=== PATIENT | male | born 1950 | race Caucasian/White ===

== ENCOUNTER 2019-12-24 06:25 | Outpatient (REF) | payer MEDICARE, SELFPAY ==
[2019-12-24 06:55] LABS: MANUAL DIFF FLAG NO
[2019-12-24 07:01] LABS: Basophils Absolute Auto 0.1 X10*3/uL (0.0-0.2); Basophils Percent Auto 0.9 % (0-2); Eosinophils Absolute Auto 0.1 X10*3/uL (0.0-0.4); Hematocrit 43.8 % (42-52); Hemoglobin 15.4 g/dl (14.0-18.0); Imm Gran Abs Auto 0.01 X10*3/uL (0.00-0.03); Imm Gran Pct Auto 0.2 % (0.0-0.4); Lymphocytes Absolute Auto 1.3 X10*3/uL (1.2-4.9); Lymphocytes Percent Auto 23.6 % (20-40); Mean Corpuscular HGB Conc 35.2 g/dl (31.0-36.0); Mean Corpuscular Hemoglobin 31.6 pg (27.0-33.0); Mean Corpuscular Volume 89.9 fL (80-98); Mean Platelet Volume 10.1 fL (9.4-12.4); Monocytes Absolute Auto 0.6 X10*3/uL (0.1-1.2); Neutrophils Absolute Auto 3.6 X10*3/uL (2.0-8.3); Neutrophils Percent Auto 63.3 % (45-73); Platelet Count 173 X10*3/uL (160-400); Red Blood Count 4.87 X10*6/uL (4.60-5.80); Red Cell Distribution Width 11.9 % (11.0-16.0); White Blood Count 5.6 X10*3/uL (4.8-10.8)
[2019-12-24 07:23] LABS: Estimated Average Glucose 105 mg/dL; Hemoglobin A1c % 5.3 %
[2019-12-24 07:29] LABS: Alanine Aminotransferase 34 U/L (0-40); Albumin Level 4.3 g/dL (3.5-5.0); Alkaline Phosphatase 84 U/L (39-117); Anion Gap 14 (12-20); Aspartate Amino Transferase 31 U/L (5-37); Bilirubin Total 0.7 mg/dL (0.0-1.0); Blood Urea Nitrogen 25 mg/dL (9-16); Calcium 8.8 mg/dL (8.4-10.2); Carbon Dioxide 22 mmol/L (22-29); Chloride 108 mmol/L (96-108); Cholesterol 170 mg/dL; Estimated Glomerular Filt Rate > 60; Glucose Fasting 105 mg/dL (60-99); HDL Cholesterol 34 mg/dL; LDL Cholesterol Calculated 111 mg/dl; Sodium 140 mmol/L (135-145); Total Protein 6.6 g/dL (6.5-8.0); Triglycerides 126 mg/dL
[2019-12-24 07:52] LABS: TSH reflex Free T4 1.72 mIU/mL (0.32-4.0)
[2019-12-24 09:09] LABS: Glucose Urine UA NEG (NEG); Leukocyte Esterase Urine NEG (NEG); Nitrite Urine NEG (NEG); Specific Gravity - Urine 1.015 (1.005-1.025); Urine Blood NEG (NEG); Urine Ketones NEG (NEG); Urine Protein NEG (NEG-TRACE)
[2019-12-24 09:13] LABS: Appearance Urine CLEAR; Color Urine YELLOW; UACC CULT NO
[2019-12-24 09:15] LABS: RBC Urine 0 /HPF (0); WBC Urine 0 /HPF (0-4)
[2019-12-24 09:58] LABS: Creatinine Urine 73.39 mg/dL; Microalbumin Urine < 5.0 mg/L
== END 2019-12-24 06:26 | disposition home or self-care (01) ==
LOC: HO.LAB 06:25
PROVIDERS: Visit Provider Internal Medicine
DX: E11.9 Type 2 diabetes mellitus without complications (principal); E78.5 Hyperlipidemia, unspecified; K75.81 Nonalcoholic steatohepatitis (NASH); J44.9 Chronic obstructive pulmonary disease, unspecified; K21.9 Gastro-esophageal reflux disease without esophagitis; E66.3 Overweight
CPT/HCPCS: 36415; 80053; 80061; 81001; 82043; 83036; 84443; 85025

== ENCOUNTER 2020-04-07 06:04 | Outpatient (REF) | payer MEDICARE, SELFPAY ==
[2020-04-07 07:15] LABS: MANUAL DIFF FLAG NO
[2020-04-07 07:27] LABS: Glucose Urine UA NEG (NEG); Leukocyte Esterase Urine NEG (NEG); Nitrite Urine NEG (NEG); Specific Gravity - Urine 1.015 (1.005-1.025); Urine Blood NEG (NEG); Urine Ketones NEG (NEG); Urine Protein NEG (NEG-TRACE)
[2020-04-07 07:30] LABS: Appearance Urine CLEAR; Color Urine YELLOW
[2020-04-07 07:31] LABS: Basophils Absolute Auto 0.1 X10*3/uL (0.0-0.2); Basophils Percent Auto 1.1 % (0-2); Eosinophils Absolute Auto 0.2 X10*3/uL (0.0-0.4); Eosinophils Percent Auto 2.9 % (0-4); Hematocrit 43.2 % (42-52); Imm Gran Abs Auto 0.01 X10*3/uL (0.00-0.03); Imm Gran Pct Auto 0.2 % (0.0-0.4); Lymphocytes Absolute Auto 1.5 X10*3/uL (1.2-4.9); Lymphocytes Percent Auto 27.4 % (20-40); Mean Corpuscular HGB Conc 34.7 g/dl (31.0-36.0); Mean Corpuscular Hemoglobin 30.9 pg (27.0-33.0); Mean Corpuscular Volume 89.1 fL (80-98); Monocytes Absolute Auto 0.6 X10*3/uL (0.1-1.2); Neutrophils Absolute Auto 3.2 X10*3/uL (2.0-8.3); Neutrophils Percent Auto 57.4 % (45-73); Platelet Count 177 X10*3/uL (160-400); Red Blood Count 4.85 X10*6/uL (4.60-5.80); Red Cell Distribution Width 12.1 % (11.0-16.0); White Blood Count 5.6 X10*3/uL (4.8-10.8)
[2020-04-07 07:45] LABS: Creatinine Urine 61.08 mg/dL; Microalbumin Urine < 5.0 mg/L
[2020-04-07 07:46] LABS: Alanine Aminotransferase 35 U/L (0-40); Albumin Level 4.4 g/dL (3.5-5.0); Alkaline Phosphatase 96 U/L (39-117); Anion Gap 12 (12-20); Aspartate Amino Transferase 32 U/L (5-37); Bilirubin Total 0.9 mg/dL (0.0-1.0); Blood Urea Nitrogen 20 mg/dL (9-16); Calcium 9.3 mg/dL (8.4-10.2); Carbon Dioxide 23 mmol/L (22-29); Chloride 107 mmol/L (96-108); Cholesterol 178 mg/dL; Estimated Glomerular Filt Rate > 60; Glucose Fasting 105 mg/dL (60-99); HDL Cholesterol 41 mg/dL; LDL Cholesterol Calculated 116 mg/dl; Potassium 4.1 mmol/L (3.3-5.1); Sodium 138 mmol/L (135-145); Total Protein 6.7 g/dL (6.5-8.0); Triglycerides 106 mg/dL
[2020-04-07 08:09] LABS: TSH reflex Free T4 2.24 uIU/mL (0.32-4.0)
== END 2020-04-07 06:05 | disposition home or self-care (01) ==
LOC: HO.LAB 06:04
PROVIDERS: Visit Provider Internal Medicine
DX: E11.9 Type 2 diabetes mellitus without complications (principal); E78.00 Pure hypercholesterolemia, unspecified; J44.9 Chronic obstructive pulmonary disease, unspecified; K21.9 Gastro-esophageal reflux disease without esophagitis; E66.3 Overweight; K75.81 Nonalcoholic steatohepatitis (NASH)
CPT/HCPCS: 36415; 80053; 80061; 81003; 82043; 84443; 85025

== ENCOUNTER 2020-09-29 06:11 | Outpatient (REF) | payer MEDICARE, SELFPAY ==
[2020-09-29 07:28] LABS: MANUAL DIFF FLAG NO
[2020-09-29 07:32] LABS: Glucose Urine UA NEG (NEG); Leukocyte Esterase Urine NEG (NEG); Nitrite Urine NEG (NEG); Specific Gravity - Urine 1.015 (1.005-1.025); Urine Blood NEG (NEG); Urine Ketones NEG (NEG); Urine Protein NEG (NEG-TRACE)
[2020-09-29 07:33] LABS: Basophils Absolute Auto 0.1 X10*3/uL (0.0-0.2); Basophils Percent Auto 1.1 % (0-2); Eosinophils Absolute Auto 0.2 X10*3/uL (0.0-0.4); Eosinophils Percent Auto 3.1 % (0-4); Hematocrit 42.9 % (42-52); Hemoglobin 14.7 g/dl (14.0-18.0); Imm Gran Abs Auto 0.01 X10*3/uL (0.00-0.03); Imm Gran Pct Auto 0.2 % (0.0-0.4); Lymphocytes Absolute Auto 1.6 X10*3/uL (1.2-4.9); Lymphocytes Percent Auto 25.7 % (20-40); Mean Corpuscular HGB Conc 34.3 g/dl (31.0-36.0); Mean Corpuscular Hemoglobin 30.6 pg (27.0-33.0); Mean Corpuscular Volume 89.2 fL (80-98); Monocytes Absolute Auto 0.7 X10*3/uL (0.1-1.2); Monocytes Percent Auto 11.1 % (2-11); Neutrophils Absolute Auto 3.6 X10*3/uL (2.0-8.3); Neutrophils Percent Auto 58.8 % (45-73); Platelet Count 184 X10*3/uL (160-400); Red Blood Count 4.81 X10*6/uL (4.60-5.80); Red Cell Distribution Width 12.3 % (11.0-16.0); White Blood Count 6.1 X10*3/uL (4.8-10.8)
[2020-09-29 07:33] LABS: Appearance Urine HAZY; Color Urine YELLOW
[2020-09-29 07:43] LABS: Estimated Average Glucose 111 mg/dL; Hemoglobin A1c % 5.5 %
[2020-09-29 07:56] LABS: Alanine Aminotransferase 30 U/L (0-40); Albumin Level 4.4 g/dL (3.5-5.0); Alkaline Phosphatase 96 U/L (39-117); Anion Gap 13 (12-20); Aspartate Amino Transferase 29 U/L (5-37); Bilirubin Total 0.6 mg/dL (0.0-1.0); Blood Urea Nitrogen 26 mg/dL (9-16); Calcium 9.4 mg/dL (8.4-10.2); Carbon Dioxide 22 mmol/L (22-29); Chloride 110 mmol/L (96-108); Cholesterol 170 mg/dL; Estimated Glomerular Filt Rate > 60; Glucose Fasting 106 mg/dL (60-99); HDL Cholesterol 38 mg/dL; LDL Cholesterol Calculated 106 mg/dl; Potassium 4.2 mmol/L (3.3-5.1); Sodium 141 mmol/L (135-145); Total Protein 6.8 g/dL (6.5-8.0); Triglycerides 131 mg/dL
[2020-09-29 08:03] LABS: Creatinine Urine 73.08 mg/dL; Microalbumin Urine < 5.0 mg/L
[2020-09-29 08:20] LABS: TSH reflex Free T4 2.46 uIU/mL (0.32-4.0)
== END 2020-09-29 06:12 | disposition home or self-care (01) ==
LOC: HO.LAB 06:11
PROVIDERS: PCP Internal Medicine; Visit Provider Internal Medicine
DX: E78.00 Pure hypercholesterolemia, unspecified (principal); I10 Essential (primary) hypertension; E11.9 Type 2 diabetes mellitus without complications
CPT/HCPCS: 36415; 80053; 80061; 81003; 82043; 83036; 84443; 85025

== ENCOUNTER → 2020-11-13 10:41 | Outpatient (BNVA) | payer MEDICARE, SELFPAY | PROVIDERS: Absent Provider Nurse Practitioner Family; PCP Internal Medicine; Referring Provider Internal Medicine; Visit Provider Nurse Practitioner Family | DX: Z12.11 Encounter for screening for malignant neoplasm of colon (principal); K75.81 Nonalcoholic steatohepatitis (NASH); R19.5 Other fecal abnormalities | CPT/HCPCS: Q3014 ==

== ENCOUNTER 2021-01-09 07:53 | Day surgery (SDC) | payer MEDICARE, SELFPAY ==
[2020-12-06 12:16] VITALS: BMI 25.8
--- NOTE | 2021-01-08 12:43 | P.CONAN_ITS ---
Documented by User: Michelle Conti NP 01/08/21 12:44 HPI - Anesthesia Eval Consult details Narrative: 70yo M for Colonoscopy PMFSH Active Problems Active Problems: All Active Problems (Updated 12/06/20 @ 12:14 by Joanna Mei, TAWNY) Annual physical exam (Acute) Positive colorectal cancer screening using Cologuard test (Acute) Overweight (BMI 25.0-29.9) (Acute) GONZALEZ (nonalcoholic steatohepatitis) (Acute) GERD without esophagitis (Acute) COPD (chronic obstructive pulmonary disease) (Acute) Pure hypercholesterolemia (Acute) Type 2 diabetes mellitus without complication, without long-term current use of insulin (Acute) Past Medical History Medical History Arthritis COPD (chronic obstructive pulmonary disease) GERD without esophagitis GONZALEZ (nonalcoholic steatohepatitis) Overweight (BMI 25.0-29.9) Pure hypercholesterolemia Type 2 diabetes mellitus without complication, without long-term current use of insulin Family History Family History Father Lung cancer Smoker Mother Congestive heart failure Surgical History Surgical History No significant past surgical history Social History Social History Housing: House Are you a primary care management assistant to a significant other at home: No Do you presently have visiting nurse or other home services: No Alcohol intake: former Patient Tobacco Use Status: Former Tobacco user Quit Date: 1977 Tobacco use type: Cigarette Second Hand Smoke Exposure: Yes Use of substances other than those prescribed or required for medical reasons: No Have you been hit, kicked, punched, or otherwise hurt by someone within the past year? If so, by whom?: No Are you DNR?: No Advance Directives: No Advance Directives Information Provided: Yes Advance Directives on File: No Recently lost weight without trying: No Eating poorly because of decreased appetite: No Nutrition Risks: No Nutritional Risk Poor oral hygiene: No (has lower partial) service: No Current occupational status: retired Meds Allergies Allergy/AdvReac Type Severity Reaction Status Date / Time Penicillins [PCN] Allergy Intermediate RASH Verified 01/09/21 08:42 Sulfa (Sulfonamide Allergy Intermediate RASH Verified 01/09/21 08:42 Antibiotics) [SULFA (SULFONAMIDE ANTIBIOTICS)] ragweed and dust Allergy Intermediate Sneezing Uncoded 12/06/20 12:15 Home Medications Medication Instructions Recorded Confirmed Last Taken Type aspirin 81 mg chewable tablet 81 mg PO DAILY 01/06/20 12/06/20 01/06/21 06:00 History Exam Exam Date and Time: January 08, 2021 1243 Height,Weight and Vital Signs: Height 5 ft 10 in Weight 81.647 kg Pertinent Lab Results Pertinent Lab Results: Laboratory Tests 09/29/20 09/29/20 06:20 06:20 WBC 6.1 Hgb 14.7 Hct 42.9 Plt Count 184 Sodium 141 Potassium 4.2 Chloride 110 H Carbon Dioxide 22 BUN 26 H Creatinine 1.11 Assessment and Plan Assessment Anesthesia Assessment: Chart Reviewed Documented by User: Christopher Modi MD 01/09/21 09:21 [facility] Past Medical History Medical History Arthritis COPD (chronic obstructive pulmonary disease) GERD without esophagitis GONZALEZ (nonalcoholic steatohepatitis) Overweight (BMI 25.0-29.9) Pure hypercholesterolemia Type 2 diabetes mellitus without complication, without long-term current use of insulin Family History Family History Father Lung cancer Smoker Mother Congestive heart failure Family history of problems with anesthesia: No Surgical History Surgical History No significant past surgical history History of Problems with Anesthesia: No Social History Social History Housing: House Are you a primary care management assistant to a significant other at home: No Do you presently have visiting nurse or other home services: No Alcohol intake: former Patient Tobacco Use Status: Former Tobacco user Quit Date: 1977 Tobacco use type: Cigarette Second Hand Smoke Exposure: Yes Use of substances other than those prescribed or required for medical reasons: No Have you been hit, kicked, punched, or otherwise hurt by someone within the past year? If so, by whom?: No Are you DNR?: No Advance Directives: No Advance Directives Information Provided: Yes Advance Directives on File: No Recently lost weight without trying: No Eating poorly because of decreased appetite: No Nutrition Risks: No Nutritional Risk Poor oral hygiene: No (has lower partial) service: No Current occupational status: retired Meds Allergies Allergy/AdvReac Type Severity Reaction Status Date / Time Penicillins [PCN] Allergy Intermediate RASH Verified 01/09/21 08:42 Sulfa (Sulfonamide Allergy Intermediate RASH Verified 01/09/21 08:42 Antibiotics) [SULFA (SULFONAMIDE ANTIBIOTICS)] ragweed and dust Allergy Intermediate Sneezing Uncoded 12/06/20 12:15 Home Medications Medication Instructions Recorded Confirmed Last Taken Type aspirin 81 mg chewable tablet 81 mg PO DAILY 01/06/20 12/06/20 01/06/21 06:00 History Exam Airway Mallampati Class: II TM Dist: >3cm Neck ROM: Full Partial: Upper and Lower Loose/Missing/Broken Teeth: Yes (multiple broken and missing teeth; poor dentition) Assessment and Plan Assessment Anesthesia Assessment: Anesthesia Plan Discussed Final Anesthetic Review Family History of Problems with Anesthesia: No History of Problems with Anesthesia: No NPO: Yes ASA Class: II Final Preanesthetic Review: No Changes in Pt Med Stat, Meds/Allgs Chart Reviewed, Consent Obtained/Reviewed and Anes Risks/Benef Reviewed Patient Risk: Low Procedure Risk: Low Anesthetic Plan Anesthetic Plan: MAC: Disposition: Standard PACU
[2021-01-09 08:33] LABS: Glucose, Whole Blood 104 mg/dL (60-115)
[2021-01-09 08:43] VITALS: BP 121/71; PULSE 62; RESP 20; TEMP 36.5; O2SAT 98
[2021-01-09] MEDS: Lactated Ringers 1,000 ML 100 ML IVCONT (08:55)
--- NOTE | 2021-01-09 09:44 | MHC.SHP ---
Pre-Procedural Eval Section A Date of Service: 01/09/21 The patient is an INPATIENT: No The History & Physical has been completed within 30 days and I have reviewed it.: No Section B Chief Complaint: Screening Details of Present Illness: Colon cancer screening Relevant Family History (Specify if Yes): No Relevant Social History: Tobacco Use (Former smoker) Present Medications: see Short Stay Collaborative assessment Medical History: Significant History (COPD (chronic obstructive pulmonary disease) GERD without esophagitis GONZALEZ (nonalcoholic steatohepatitis) Overweight (BMI 25.0-29.9) Pure hypercholesterolemia Type 2 diabetes mellitus without complication, without long-term current use of insulin) History of Previous Operations: No relevant previous surgery Allergies: Allergies Allergy/AdvReac Type Severity Reaction Status Date / Time Penicillins [PCN] Allergy Intermediate RASH Verified 01/09/21 08:42 Sulfa (Sulfonamide Allergy Intermediate RASH Verified 01/09/21 08:42 Antibiotics) [SULFA (SULFONAMIDE ANTIBIOTICS)] ragweed and dust Allergy Intermediate Sneezing Uncoded 12/06/20 12:15 Review of Systems Sugical H&P ROS: Negative: Constitution, Cardiovascular, Respiratory and Gastrointestinal Exam Surgical H&P Exam: Normal: Heart, Normal: Lungs, Normal: Extremities and Normal: Abdomen Plan Diagnosis/Plan: Unchanged I have reviewed the history and physical and performed a pertinent physical examination on my patient. No changes have occurred unless specified.
--- NOTE | 2021-01-09 09:53 | P.OP_ITS ---
Operative Note Operative Note Date of Service: 01/09/21 Narrative: Pre-op diagnosis:?Colon cancer screening, positive cologuard test Post-op diagnosis:?other (Diverticulosis, hemorrhoids) Procedure:? COLONOSCOPY TILL CECUM Consent: Indications for the procedure and potential complications of bleeding, perforation, reaction to medications and missed diagnosis were discussed with the patient and informed consent was obtained. Instrument: Olympus PCF H 190 L variable stiffness pediatric colonoscope Monitoring: Vital signs and clinical assessment, intermittent blood pressure monitoring, continuous EKG monitoring, Pulse oximetry and Carbon Dioxide monitoring were done throughout the procedure. Colon withdrawl time was 24 minutes. Procedure: The patient was placed in the left lateral decubitis position and pre-procedure medications were administered. After a digital rectal examination of the ano-rectum, the video colonoscope was inserted into the rectum and advanced through the colon to the cecum. The colonoscope was slowly withdrawn in a retrograde panoramic fashion and the colon mucosa was carefully examined including a retroflexed view of the rectum. Findings and interventions are described below. Procedure Difficulty: Without difficulty Findings: Terminal Ileum: Not evaluated Cecum:? Normal Ascending Colon:? Moderate diverticulosis Transverse Colon:? Moderate diverticulosis Descending Colon:? Moderate diverticulosis Sigmoid Colon:? Moderate diverticulosis Rectum:? Normal Ano-rectum:? Moderate internal hemorrhoids Colon preparation:? Good after copious irrigation and fair in the right colon due to adherent stools Impression and Post Procedure Diagnosis: Colonoscopy Findings: No polyps were detected Moderate diverticulosis seen in the entire colon Moderate hemorrhoids on retroflexed exam. Plan: Repeat Colonoscopy in 5 years due to fair prep in the right colon. Above findings were reviewed with the patient and diverticulosis handout was? given in the discharge area Surgeon:?Jenny Rankin MD Anesthesia:?MAC (Beverly Prakash CRNA) Was an System Support Specialist used for this Procedure?:?Yes System Support Specialist:?Mary Mason Estimated blood loss (mL):?0 Pathology:?none sent Condition:?stable Disposition:?PACU
[2021-01-09 10:35] VITALS: BP 93/45; PULSE 75; RESP 16; TEMP 36.3; O2SAT 97
[2021-01-09 10:49] VITALS: BP 111/58; PULSE 66; RESP 16; TEMP 36.3; O2SAT 98
== END 2021-01-09 11:26 | disposition home or self-care (01) ==
PROVIDERS: PCP Internal Medicine; Visit Provider Internal Medicine Gastroenterology
PROC: 0DJD8ZZ Inspection of Lower Intestinal Tract, Via Natural or Artificial Opening Endoscopic (ICD-10-PCS; CPT 45378; principal; 2021-01-09 09:20)
DX: Z12.11 Encounter for screening for malignant neoplasm of colon (principal); R19.5 Other fecal abnormalities; K57.30 Diverticulosis of large intestine without perforation or abscess without bleeding; K64.8 Other hemorrhoids; K21.9 Gastro-esophageal reflux disease without esophagitis; K75.81 Nonalcoholic steatohepatitis (NASH); E78.00 Pure hypercholesterolemia, unspecified; J44.9 Chronic obstructive pulmonary disease, unspecified; E11.9 Type 2 diabetes mellitus without complications; E66.3 Overweight; Z68.25 Body mass index [BMI] 25.0-25.9, adult; Z79.82 Long term (current) use of aspirin; Z88.0 Allergy status to penicillin; Z88.2 Allergy status to sulfonamides; Z87.891 Personal history of nicotine dependence
CPT/HCPCS: G0121; 82947

== ENCOUNTER 2021-02-05 06:06 | Outpatient (REF) | payer MEDICARE, SELFPAY ==
[2021-02-05 06:18] LABS: MANUAL DIFF FLAG NO
[2021-02-05 07:50] LABS: Estimated Average Glucose 111 mg/dL; Hemoglobin A1c % 5.5 %
[2021-02-05 08:11] LABS: Alanine Aminotransferase 35 U/L (0-40); Albumin Level 4.3 g/dL (3.5-5.0); Alkaline Phosphatase 90 U/L (39-117); Anion Gap 12 (12-20); Aspartate Amino Transferase 29 U/L (5-37); Bilirubin Total 0.6 mg/dL (0.0-1.0); Blood Urea Nitrogen 20 mg/dL (9-16); Calcium 9.4 mg/dL (8.4-10.2); Carbon Dioxide 26 mmol/L (22-29); Chloride 109 mmol/L (96-108); Cholesterol 181 mg/dL; Estimated Glomerular Filt Rate > 60; Glucose Fasting 107 mg/dL (60-99); HDL Cholesterol 38 mg/dL; LDL Cholesterol Calculated 125 mg/dl; Potassium 4.5 mmol/L (3.3-5.1); Sodium 142 mmol/L (135-145); Total Protein 6.8 g/dL (6.5-8.0); Triglycerides 93 mg/dL
[2021-02-05 08:21] LABS: Basophils Absolute Auto 0.1 X10*3/uL (0.0-0.2); Basophils Percent Auto 0.8 % (0-2); Eosinophils Absolute Auto 0.1 X10*3/uL (0.0-0.4); Eosinophils Percent Auto 2.1 % (0-4); Hematocrit 51.1 % (42.0-52.0); Hemoglobin 17.4 g/dl (14.0-18.0); Imm Gran Abs Auto 0.03 X10*3/uL (0.00-0.03); Imm Gran Pct Auto 0.5 % (0.0-0.4); Lymphocytes Absolute Auto 1.4 X10*3/uL (1.2-4.9); Lymphocytes Percent Auto 22.7 % (20-40); Mean Corpuscular HGB Conc 34.1 g/dl (31.0-36.0); Mean Corpuscular Hemoglobin 30.7 pg (27.0-33.0); Mean Corpuscular Volume 90.3 fL (80.0-98.0); Mean Platelet Volume 10.4 fL (9.4-12.4); Monocytes Absolute Auto 0.7 X10*3/uL (0.1-1.2); Monocytes Percent Auto 11.5 % (2-11); Neutrophils Absolute Auto 3.8 x10*3/uL (2.0-8.3); Neutrophils Percent Auto 62.4 % (45-73); Platelet Count 158 X10*3/uL (160-400); Red Blood Count 5.66 X10*6/uL (4.60-5.80); Red Cell Distribution Width 12.1 % (11.0-16.0); White Blood Count 6.1 X10*3/uL (4.8-10.8)
[2021-02-05 08:30] LABS: Prostate Specific Antigen 3.86 ng/mL (<0.05-4.0); Vitamin D 25-OH Total 44.3 ng/mL (>30)
[2021-02-05 08:39] LABS: Appearance Urine CLEAR; Color Urine YELLOW; Glucose Urine UA NEG (NEG); Leukocyte Esterase Urine NEG (NEG); Nitrite Urine NEG (NEG); Urine Blood NEG (NEG); Urine Ketones NEG (NEG); Urine Protein NEG (NEG-TRACE)
== END 2021-02-05 06:07 | disposition home or self-care (01) ==
LOC: HO.LAB 06:06
PROVIDERS: PCP Internal Medicine; Visit Provider Internal Medicine
DX: Z00.00 Encounter for general adult medical examination without abnormal findings (principal); I10 Essential (primary) hypertension; E55.9 Vitamin D deficiency, unspecified; E78.00 Pure hypercholesterolemia, unspecified; N40.0 Benign prostatic hyperplasia without lower urinary tract symptoms; E11.9 Type 2 diabetes mellitus without complications; Z12.5 Encounter for screening for malignant neoplasm of prostate
CPT/HCPCS: 36415; 80053; 80061; 81003; 82306; 83036; 84153; 84443; 85025

== ENCOUNTER 2021-06-06 06:08 | Outpatient (REF) | payer MEDICARE, SELFPAY ==
[2021-06-06 06:24] LABS: MANUAL DIFF FLAG NO
[2021-06-06 07:38] LABS: Basophils Absolute Auto 0.1 X10*3/uL (0.0-0.2); Basophils Percent Auto 1.2 % (0-2); Eosinophils Absolute Auto 0.1 X10*3/uL (0.0-0.4); Eosinophils Percent Auto 2.1 % (0-4); Hematocrit 44.9 % (42.0-52.0); Hemoglobin 15.4 g/dl (14.0-18.0); Imm Gran Abs Auto 0.01 X10*3/uL (0.00-0.03); Imm Gran Pct Auto 0.2 % (0.0-0.4); Lymphocytes Absolute Auto 1.4 X10*3/uL (1.2-4.9); Lymphocytes Percent Auto 22.6 % (20-40); Mean Corpuscular HGB Conc 34.3 g/dl (31.0-36.0); Mean Corpuscular Hemoglobin 30.8 pg (27.0-33.0); Mean Corpuscular Volume 89.8 fL (80.0-98.0); Mean Platelet Volume 10.3 fL (9.4-12.4); Monocytes Absolute Auto 0.6 X10*3/uL (0.1-1.2); Monocytes Percent Auto 10.6 % (2-11); Neutrophils Absolute Auto 3.8 x10*3/uL (2.0-8.3); Neutrophils Percent Auto 63.3 % (45-73); Platelet Count 191 X10*3/uL (160-400); Red Cell Distribution Width 12.2 % (11.0-16.0); White Blood Count 6.1 X10*3/uL (4.8-10.8)
[2021-06-06 07:59] LABS: Estimated Average Glucose 108 mg/dL; Hemoglobin A1c % 5.4 %
[2021-06-06 08:11] LABS: Alanine Aminotransferase 30 U/L (0-40); Albumin Level 4.4 g/dL (3.5-5.0); Alkaline Phosphatase 92 U/L (39-117); Anion Gap 13 (12-20); Aspartate Amino Transferase 30 U/L (5-37); Bilirubin Total 0.6 mg/dL (0.0-1.0); Blood Urea Nitrogen 25 mg/dL (9-16); Calcium 9.7 mg/dL (8.4-10.2); Carbon Dioxide 24 mmol/L (22-29); Chloride 109 mmol/L (96-108); Cholesterol 185 mg/dL; Estimated Glomerular Filt Rate > 60; Glucose Fasting 108 mg/dL (60-99); HDL Cholesterol 40 mg/dL; LDL Cholesterol Calculated 127 mg/dl; Potassium 4.8 mmol/L (3.3-5.1); Sodium 141 mmol/L (135-145); Total Protein 6.8 g/dL (6.5-8.0); Triglycerides 92 mg/dL
[2021-06-06 08:21] LABS: TSH reflex Free T4 2.77 uIU/mL (0.32-4.0); Vitamin D 25-OH Total 40.7 ng/mL (>30)
== END 2021-06-06 06:09 | disposition home or self-care (01) ==
LOC: HO.LAB 06:08
PROVIDERS: PCP Internal Medicine; Visit Provider Internal Medicine
DX: E11.9 Type 2 diabetes mellitus without complications (principal); E55.9 Vitamin D deficiency, unspecified; E78.00 Pure hypercholesterolemia, unspecified; K21.9 Gastro-esophageal reflux disease without esophagitis
CPT/HCPCS: 36415; 80053; 80061; 82306; 83036; 84443; 85025

== ENCOUNTER 2021-06-07 08:56 | Outpatient (REF) | payer MEDICARE, SELFPAY ==
[2021-06-07 10:06] LABS: Appearance Urine CLEAR; Color Urine STRAW; Glucose Urine UA NEG (NEG); Leukocyte Esterase Urine NEG (NEG); Nitrite Urine NEG (NEG); Urine Blood NEG (NEG); Urine Ketones NEG (NEG); Urine Protein NEG (NEG-TRACE)
[2021-06-07 10:39] LABS: Creatinine Urine 35.82 mg/dL; Microalbumin Urine < 5.0 mg/L
== END 2021-06-07 08:57 | disposition home or self-care (01) ==
LOC: HO.LAB 08:56
PROVIDERS: PCP Internal Medicine; Visit Provider Internal Medicine
DX: E11.9 Type 2 diabetes mellitus without complications (principal)
CPT/HCPCS: 81003; 82043

== ENCOUNTER 2021-06-13 11:37 | Outpatient (REF) | payer MEDICARE, SELFPAY ==
--- NOTE | ~2021-06-13 | XR_ITS ---
EXAMINATION: XR HAND, RIGHT XR HAND, LEFT CLINICAL INFORMATION: Bilateral pain in hands. COMPARISON: None TECHNIQUE: Each hand is imaged in 3 views. There are total of 6 views. FINDINGS: Right: No fracture, dislocation, destructive process. Bony mineralization within normal. Ulnar variance is neutral. Incidental bone island in mid carpal navicular. There is a group of 3 smooth course round calcifications superficial volar side distal forearm with nodular contour to skin surface. There are osteoarthritic changes involving the first carpometacarpal joint with fine subchondral cysts and spurring and sclerosis. Remainder of the carpus unremarkable. No mineralization triangular fibrocartilage. The MCP and PIP joints are normal. DIP joints show osteoarthritic changes at the fifth finger with probable fine central erosions suggesting erosive osteoarthritis. Psoriatic arthritis less likely. Clinically correlate. Mild narrowing third and fourth finger DIP. Left: No fracture, dislocation, destructive process. Bony mineralization within normal. Ulnar variance is neutral. Osteoarthritic changes first carpometacarpal joint, lesser severity than that on the right. There is also mild narrowing of the triscaphe joint. Remainder carpus unremarkable. No mineralization triangular fibrocartilage. The MCP and PIP joints are unremarkable. Incidental bone island next first metacarpal. DIP joints show osteoarthritic changes at the fifth finger with probable erosions suggesting erosive osteoarthritis. Mild narrowing third and fourth finger DIP. XR/XR hand RT min 3V IMPRESSION: Right: -Osteoarthritis first carpometacarpal joint with probable subchondral geodes rather than erosive change. -Narrowing DIP joints, greatest fifth finger with central erosions suggesting erosive osteoarthritis. Psoriatic arthritis may have similar appearance. Clinically correlate. -Nonspecific superficial nodule distal volar forearm with for small benign appearing round calcifications. Left: -Osteoarthritis first carpometacarpal joint, lesser severity than right. -Narrowing triscaphe joint. -Degenerative changes DIP joints greatest fifth finger with probable suggesting erosive osteoarthritis. Psoriatic arthritis may have similar appearance. Clinically correlate.
== END 2021-06-13 11:38 | disposition home or self-care (01) ==
LOC: HO.XRAY 11:37
PROVIDERS: PCP Internal Medicine; Visit Provider Internal Medicine
DX: M79.641 Pain in right hand (principal); M79.642 Pain in left hand
CPT/HCPCS: 73130

== ENCOUNTER 2021-10-03 06:06 | Outpatient (REF) | payer OTHER, SELFPAY ==
[2021-10-03 06:13] LABS: MANUAL DIFF FLAG NO
[2021-10-03 07:18] LABS: Basophils Absolute Auto 0.1 X10*3/uL (0.0-0.2); Basophils Percent Auto 1.1 % (0-2); Eosinophils Absolute Auto 0.2 X10*3/uL (0.0-0.4); Eosinophils Percent Auto 2.4 % (0-4); Hematocrit 43.9 % (42.0-52.0); Hemoglobin 15.3 g/dl (14.0-18.0); Imm Gran Abs Auto 0.03 X10*3/uL (0.00-0.03); Imm Gran Pct Auto 0.5 % (0.0-0.4); Lymphocytes Absolute Auto 1.5 X10*3/uL (1.2-4.9); Lymphocytes Percent Auto 23.8 % (20-40); Mean Corpuscular HGB Conc 34.9 g/dl (31.0-36.0); Mean Corpuscular Hemoglobin 31.2 pg (27.0-33.0); Mean Corpuscular Volume 89.6 fL (80.0-98.0); Mean Platelet Volume 10.3 fL (9.4-12.4); Monocytes Absolute Auto 0.7 X10*3/uL (0.1-1.2); Monocytes Percent Auto 11.4 % (2-11); Neutrophils Absolute Auto 3.9 x10*3/uL (2.0-8.3); Neutrophils Percent Auto 60.8 % (45-73); Platelet Count 181 X10*3/uL (160-400); Red Cell Distribution Width 12.2 % (11.0-16.0); White Blood Count 6.4 X10*3/uL (4.8-10.8)
[2021-10-03 07:30] LABS: Estimated Average Glucose 105 mg/dL; Hemoglobin A1c % 5.3 %
[2021-10-03 07:41] LABS: Alanine Aminotransferase 23 U/L (0-40); Albumin Level 4.5 g/dL (3.5-5.0); Alkaline Phosphatase 89 U/L (39-117); Anion Gap 16 (12-20); Aspartate Amino Transferase 24 U/L (5-37); Bilirubin Total 0.3 mg/dL (0.0-1.0); Blood Urea Nitrogen 25 mg/dL (9-16); C Reactive Protein 0.07 mg/dL (< or = 0.50); Calcium 9.3 mg/dL (8.4-10.2); Carbon Dioxide 24 mmol/L (22-29); Chloride 107 mmol/L (96-108); Cholesterol 200 mg/dL; Estimated Glomerular Filt Rate > 60; Glucose Fasting 101 mg/dL (60-99); HDL Cholesterol 39 mg/dL; LDL Cholesterol Calculated 145 mg/dl; Potassium 4.3 mmol/L (3.3-5.1); Sodium 143 mmol/L (135-145); Total Protein 6.9 g/dL (6.5-8.0); Triglycerides 82 mg/dL
[2021-10-03 08:00] LABS: Erythrocyte Sedimentation Rate 5 MM/HR (0-15)
[2021-10-03 08:05] LABS: TSH reflex Free T4 2.48 uIU/mL (0.32-4.0); Vitamin D 25-OH Total 39.5 ng/mL (>30)
[2021-10-03 08:28] LABS: Creatinine Urine 22.22 mg/dL; Microalbumin Urine < 5.0 mg/L
[2021-10-03 09:01] LABS: Appearance Urine Clear; Color Urine Yellow; Glucose Urine UA Negative (Negative); Leukocyte Esterase Urine Negative (Negative); Nitrite Urine Negative (Negative); PH 6.5 (5.0-8.0); Specific Gravity - Urine <= 1.005 (1.005-1.025); Urine Blood Negative (Negative); Urine Ketones Negative (Negative); Urine Protein Negative (Neg-Trace)
== END 2021-10-03 06:07 | disposition home or self-care (01) ==
LOC: HO.LAB 06:06
PROVIDERS: PCP Internal Medicine; Visit Provider Internal Medicine
DX: E11.9 Type 2 diabetes mellitus without complications (principal); E55.9 Vitamin D deficiency, unspecified; M25.50 Pain in unspecified joint; M79.7 Fibromyalgia; M10.9 Gout, unspecified; I10 Essential (primary) hypertension; E78.00 Pure hypercholesterolemia, unspecified
CPT/HCPCS: 36415; 80053; 80061; 81003; 82043; 82306; 83036; 84443; 84550; 85025; 85652; 86140

== ENCOUNTER 2022-02-05 06:16 | Outpatient (REF) | payer OTHER, SELFPAY ==
[2022-02-05 06:23] LABS: MANUAL DIFF FLAG NO
[2022-02-05 07:28] LABS: Basophils Absolute Auto 0.1 X10*3/uL (0.0-0.2); Basophils Percent Auto 0.9 % (0-2); Eosinophils Absolute Auto 0.2 X10*3/uL (0.0-0.4); Eosinophils Percent Auto 2.2 % (0-4); Hematocrit 46.3 % (42.0-52.0); Hemoglobin 16.1 g/dl (14.0-18.0); Imm Gran Abs Auto 0.02 X10*3/uL (0.00-0.03); Imm Gran Pct Auto 0.3 % (0.0-0.4); Lymphocytes Absolute Auto 1.5 X10*3/uL (1.2-4.9); Lymphocytes Percent Auto 22.9 % (20-40); Mean Corpuscular HGB Conc 34.8 g/dl (31.0-36.0); Mean Corpuscular Hemoglobin 31.3 pg (27.0-33.0); Mean Corpuscular Volume 90.1 fL (80.0-98.0); Mean Platelet Volume 9.9 fL (9.4-12.4); Monocytes Absolute Auto 0.7 X10*3/uL (0.1-1.2); Monocytes Percent Auto 10.5 % (2-11); Neutrophils Absolute Auto 4.2 x10*3/uL (2.0-8.3); Neutrophils Percent Auto 63.2 % (45-73); Platelet Count 186 X10*3/uL (160-400); Red Blood Count 5.14 X10*6/uL (4.60-5.80); Red Cell Distribution Width 11.9 % (11.0-16.0); White Blood Count 6.7 X10*3/uL (4.8-10.8)
[2022-02-05 07:41] LABS: Appearance Urine Clear; Color Urine Yellow; Estimated Average Glucose 108 mg/dL; Glucose Urine UA Negative (Negative); Hemoglobin A1c % 5.4 %; Leukocyte Esterase Urine Negative (Negative); Nitrite Urine Negative (Negative); PH 7.5 (5.0-9.0); Specific Gravity - Urine <= 1.005 (1.005-1.025); Urine Blood Negative (Negative); Urine Ketones Negative (Negative); Urine Protein Negative (Neg-Trace)
[2022-02-05 07:51] LABS: Creatinine Urine 15.61 mg/dL; Microalbumin Urine < 5.0 mg/L
[2022-02-05 07:56] LABS: Alanine Aminotransferase 39 U/L (0-40); Albumin Level 4.6 g/dL (3.5-5.0); Alkaline Phosphatase 89 U/L (39-117); Anion Gap 12 (12-20); Aspartate Amino Transferase 32 U/L (5-37); Blood Urea Nitrogen 20 mg/dL (9-16); Calcium 9.9 mg/dL (8.4-10.2); Carbon Dioxide 26 mmol/L (22-29); Chloride 108 mmol/L (96-108); Cholesterol 185 mg/dL; Estimated Glomerular Filt Rate > 60; Glucose Fasting 99 mg/dL (60-99); HDL Cholesterol 40 mg/dL; LDL Cholesterol Calculated 119 mg/dl; Potassium 4.7 mmol/L (3.3-5.1); Sodium 141 mmol/L (135-145); Triglycerides 131 mg/dL
[2022-02-05 08:15] LABS: Vitamin D 25-OH Total 38.8 ng/mL (>30)
[2022-02-05 11:22] LABS: Bilirubin Total 0.7 mg/dL (0.0-1.0)
== END 2022-02-05 06:17 | disposition home or self-care (01) ==
LOC: HO.LAB 06:16
PROVIDERS: PCP Internal Medicine; Visit Provider Internal Medicine
DX: E78.00 Pure hypercholesterolemia, unspecified (principal); E11.9 Type 2 diabetes mellitus without complications; E55.9 Vitamin D deficiency, unspecified; I10 Essential (primary) hypertension
CPT/HCPCS: 36415; 80053; 80061; 81003; 82043; 82306; 83036; 84443; 85025

== ENCOUNTER 2022-06-11 06:13 | Outpatient (REF) | payer OTHER, SELFPAY ==
[2022-06-11 06:31] LABS: MANUAL DIFF FLAG NO
[2022-06-11 07:39] LABS: Basophils Absolute Auto 0.1 X10*3/uL (0.0-0.2); Basophils Percent Auto 1.2 % (0-2); Eosinophils Absolute Auto 0.1 X10*3/uL (0.0-0.4); Eosinophils Percent Auto 2.4 % (0-4); Hematocrit 45.5 % (42.0-52.0); Hemoglobin 15.3 g/dl (14.0-18.0); Imm Gran Abs Auto 0.02 X10*3/uL (0.00-0.03); Imm Gran Pct Auto 0.3 % (0.0-0.4); Lymphocytes Absolute Auto 1.2 X10*3/uL (1.2-4.9); Lymphocytes Percent Auto 19.8 % (20-40); Mean Corpuscular HGB Conc 33.6 g/dl (31.0-36.0); Mean Corpuscular Hemoglobin 30.5 pg (27.0-33.0); Mean Corpuscular Volume 90.8 fL (80.0-98.0); Mean Platelet Volume 10.1 fL (9.4-12.4); Monocytes Absolute Auto 0.6 X10*3/uL (0.1-1.2); Monocytes Percent Auto 10.6 % (2-11); Neutrophils Absolute Auto 3.9 x10*3/uL (2.0-8.3); Neutrophils Percent Auto 65.7 % (45-73); Platelet Count 181 X10*3/uL (160-400); Red Blood Count 5.01 X10*6/uL (4.60-5.80); Red Cell Distribution Width 12.1 % (11.0-16.0); White Blood Count 5.9 X10*3/uL (4.8-10.8)
[2022-06-11 07:50] LABS: Estimated Average Glucose 108 mg/dL; Hemoglobin A1c % 5.4 %
[2022-06-11 08:14] LABS: Alanine Aminotransferase 36 U/L (0-40); Albumin Level 4.4 g/dL (3.5-5.0); Alkaline Phosphatase 96 U/L (39-117); Anion Gap 13 (12-20); Aspartate Amino Transferase 31 U/L (5-37); Bilirubin Total 0.6 mg/dL (0.0-1.0); Blood Urea Nitrogen 25 mg/dL (9-16); Calcium 9.5 mg/dL (8.4-10.2); Carbon Dioxide 24 mmol/L (22-29); Chloride 109 mmol/L (96-108); Cholesterol 157 mg/dL; Estimated Glomerular Filt Rate > 60; Glucose Fasting 106 mg/dL (60-99); HDL Cholesterol 39 mg/dL; LDL Cholesterol Calculated 102 mg/dl; Potassium 4.4 mmol/L (3.3-5.1); Sodium 142 mmol/L (135-145); Total Protein 6.6 g/dL (6.5-8.0); Triglycerides 82 mg/dL
[2022-06-11 08:19] LABS: TSH reflex Free T4 2.55 uIU/mL (0.32-4.0)
[2022-06-11 08:35] LABS: Appearance Urine Clear; Color Urine Yellow; Glucose Urine UA Negative (Negative); Leukocyte Esterase Urine Negative (Negative); Nitrite Urine Negative (Negative); Specific Gravity - Urine <= 1.005 (1.005-1.025); Urine Blood Negative (Negative); Urine Ketones Negative (Negative); Urine Protein Negative (Neg-Trace)
[2022-06-11 09:28] LABS: Microalbumin Urine < 5.0 mg/L
== END 2022-06-11 06:14 | disposition home or self-care (01) ==
LOC: HO.LAB 06:13
PROVIDERS: PCP Internal Medicine; Visit Provider Internal Medicine
DX: E55.9 Vitamin D deficiency, unspecified (principal); R30.0 Dysuria; E78.00 Pure hypercholesterolemia, unspecified; E11.9 Type 2 diabetes mellitus without complications; I10 Essential (primary) hypertension
CPT/HCPCS: 36415; 80053; 80061; 81003; 82043; 82306; 83036; 84443; 85025

== ENCOUNTER 2022-10-11 06:12 | Outpatient (REF) | payer OTHER, SELFPAY ==
[2022-10-11 06:23] LABS: MANUAL DIFF FLAG NO
[2022-10-11 08:19] LABS: Basophils Absolute Auto 0.1 X10*3/uL (0.0-0.2); Basophils Percent Auto 1.2 % (0-2); Eosinophils Absolute Auto 0.2 X10*3/uL (0.0-0.4); Eosinophils Percent Auto 3.1 % (0-4); Hematocrit 42.7 % (42.0-52.0); Hemoglobin 14.4 g/dl (14.0-18.0); Imm Gran Abs Auto 0.01 X10*3/uL (0.00-0.03); Imm Gran Pct Auto 0.2 % (0.0-0.4); Lymphocytes Absolute Auto 1.2 X10*3/uL (1.2-4.9); Lymphocytes Percent Auto 21.3 % (20-40); Mean Corpuscular HGB Conc 33.7 g/dl (31.0-36.0); Mean Corpuscular Volume 91.8 fL (80.0-98.0); Mean Platelet Volume 10.4 fL (9.4-12.4); Monocytes Absolute Auto 0.7 X10*3/uL (0.1-1.2); Monocytes Percent Auto 11.4 % (2-11); Neutrophils Absolute Auto 3.7 x10*3/uL (2.0-8.3); Neutrophils Percent Auto 62.8 % (45-73); Platelet Count 170 X10*3/uL (160-400); Red Blood Count 4.65 X10*6/uL (4.60-5.80); Red Cell Distribution Width 12.3 % (11.0-16.0); White Blood Count 5.8 X10*3/uL (4.8-10.8)
[2022-10-11 08:44] LABS: Estimated Average Glucose 103 mg/dL; Hemoglobin A1c % 5.2 % (<6.0)
[2022-10-11 09:16] LABS: Alanine Aminotransferase 34 U/L (0-40); Albumin Level 4.2 g/dL (3.5-5.0); Alkaline Phosphatase 82 U/L (39-117); Anion Gap 14 (12-20); Aspartate Amino Transferase 30 U/L (5-37); Bilirubin Total 0.6 mg/dL (0.0-1.0); Blood Urea Nitrogen 24 mg/dL (9-16); Calcium 9.5 mg/dL (8.4-10.2); Carbon Dioxide 22 mmol/L (22-29); Chloride 109 mmol/L (96-108); Cholesterol 143 mg/dL (<200); Estimated Glomerular Filt Rate > 60; Glucose Fasting 100 mg/dL (60-99); HDL Cholesterol 43 mg/dL (>40); LDL Cholesterol Calculated 85 mg/dL (<100); Potassium 4.2 mmol/L (3.3-5.1); Sodium 141 mmol/L (135-145); Total Protein 6.7 g/dL (6.5-8.0); Triglycerides 75 mg/dL (<150)
[2022-10-11 09:24] LABS: TSH reflex Free T4 3.01 uIU/mL (0.32-4.0); Vitamin D 25-OH Total 55.7 ng/mL (>30)
[2022-10-11 09:45] LABS: Folate 13.3 ng/mL (> or = 4.0); Vitamin B12 541 pg/mL (200-900)
[2022-10-11 10:22] LABS: Appearance Urine Clear; Color Urine Yellow; Glucose Urine UA Negative (Negative); Leukocyte Esterase Urine Negative (Negative); Nitrite Urine Negative (Negative); Urine Blood Negative (Negative); Urine Ketones Negative (Negative); Urine Protein Negative (Neg-Trace)
[2022-10-11 11:02] LABS: Creatinine Urine 46.74 mg/dL; Microalbumin Urine < 5.0 mg/L
== END 2022-10-11 06:13 | disposition home or self-care (01) ==
LOC: HO.LAB 06:12
PROVIDERS: PCP Internal Medicine; Visit Provider Internal Medicine
DX: I10 Essential (primary) hypertension (principal); E78.00 Pure hypercholesterolemia, unspecified; E53.8 Deficiency of other specified B group vitamins; E11.9 Type 2 diabetes mellitus without complications; R30.0 Dysuria; E55.9 Vitamin D deficiency, unspecified
CPT/HCPCS: 36415; 80053; 80061; 81003; 82043; 82306; 82607; 82746; 83036; 84443; 85025

== ENCOUNTER 2022-10-15 08:58 | Outpatient (AMB) | payer OTHER, SELFPAY ==
[2022-10-15 08:59] VITALS: BP 110/70; PULSE 67; O2SAT 97; BMI 26.3
--- NOTE | 2022-10-15 08:59 | A.OFFPC_ITS ---
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 Accompanied by: Self / Same As Patient Allergies Penicillins [PCN] Allergy (Intermediate, Verified 10/15/22 09:24) RASH Sulfa (Sulfonamide Antibiotics) [SULFA (SULFONAMIDE ANTIBIOTICS)] Allergy (Intermediate, Verified 10/15/22 09:24) RASH ragweed and dust Allergy (Intermediate, Uncoded 10/15/22 09:24) Sneezing Medication List - Last Reconciled 10/15/22 by Craig Vega MD blood sugar diagnostic (Interventional ImagingTouch Verio test strips) 1 strip miscellaneous DAILY cholecalciferol (vitamin D3) (Vitamin D3) 25 mcg PO DAILY ezetimibe 10 mg PO DAILY 90 days meloxicam 7.5 mg PO DAILY PRN 30 days metformin 500 mg PO DAILY 90 days omeprazole 20 mg PO QAM pravastatin 40 mg PO DAILY 90 days Tobacco use date assessed: 10/15/22 Fall risk assessment: No Falls in past year Last assessed Fall Risk: 10/15/22 Dental Screening Dental Screen Date: 10/15/22 Did you have a dental visit in the last 12 months?: No Did you have a dental problem in the last 6 months where you did not have access to dental care?: No Was dental information given to patient?: Patient has dentist HPI PE HPI Details Patient comes in today for his annual physical examination States that he feels okay He denies any headaches or dizziness Denies any chest pains, no SOB No nausea/vomiting, no abdominal pain No change in bowel habits noted Denies any acute urinary symptoms Had his follow up labs done a few days ago - to discuss his results He had a negative Cologuard back in 2019 and had a regular colonoscopy done on 01/09/21 - (+) diverticulosis and hemorrhoids; recommend repeat in 5 years due to fair prep [facility] Medical History Arthritis COPD (chronic obstructive pulmonary disease) GERD without esophagitis GONZALEZ (nonalcoholic steatohepatitis) Overweight (BMI 25.0-29.9) Pure hypercholesterolemia Type 2 diabetes mellitus without complication, without long-term current use of insulin Surgical History (Updated 10/15/22 @ 09:27 by Craig Vega MD) H/O colonoscopy (~01/09/21) Family History Father Lung cancer Smoker Mother Congestive heart failure Social History Housing: House Are you a primary animal daycare provider to a significant other at home: No Do you presently have visiting nurse or other home services: No Alcohol intake: former Patient Tobacco Use Status: Former Tobacco user Quit Date: 1977 Tobacco use type: Cigarette e-Cigarette/Vaping Use: Never Used Second Hand Smoke Exposure: Yes service: No Current occupational status: retired Cognitive needs: No Hearing needs: No Vision needs: No Questionnaire PHQ-9 Over the last 2 weeks, how often have you been bothered by any of the following problems? 1. Little interest or pleasure in doing things: not at all 2. Feeling down, depressed, or hopeless: not at all 3. Trouble falling or staying asleep, or sleeping too much: not at all 4. Feeling tired or having little energy: not at all 5. Poor appetite or overeating: not at all 6. Feeling bad about yourself - or that you are a failure or have let yourself or your family down: not at all 7. Trouble concentrating on things, such as reading the newspaper or watching television: not at all 8. Moving or speaking so slowly that other people could have noticed. Or the opp osite - being so fidgety or restless that you have been moving around a lot more than usual: not at all 9. Thoughts that you would be better off or of hurting yourself in some way: not at all Total score: 0 Depression Screening Interpretation: Negative [id number] - PHQ-9 Billing: Yes Source: Developed by Drs. Ricardo Nelson, Lucinda Matamoros, Kareem Timmons and colleagues, with an educational luz maria from [employer]. Thrive Questionnaire Date Thrive assessed: 10/15/22 I am a: Patient What is your living situation today?: I have a steady place to live Within the past 12 months, did the food you bought not last and you didn't have the money to get more?: Never true Within the past 12 months, did you worry whether your food would run out before you got money to buy more?: Never true Do you have trouble paying for medicines?: No Do you have trouble getting transportation to medical appointments?: No Do you have trouble paying your heating and electricity bill?: No Do you have trouble taking care of your child, family member or friend?: No Do you have trouble with day-to-day activities such as bathing, preparing meals, shopping, managing finances, etc.?: No Are you currently unemployed and looking for a job?: No Are you interested in more education?: No Please select the resources that you would like help with: None Currently or been in a relationship where the following occur: no concerns reported AUDIT C Alcohol Use Questionnaire (AUDIT-C) 1. How often do you have a drink containing alcohol?: Never 3. How often do you have six or more drinks on one occasion?: Never Total Score: 0 Score Reviewed/Action Taken: Yes JOHN-7 AMB Questionnaire JOHN-7 Date JOHN - 7 assessed: 10/15/22 Feeling nervous, anxious, or on edge: 0 = Not at all Not being able to stop or control worryin = Not at all Worrying too much about different things: 0 = Not at all Trouble relaxin = Not at all Being so restless that it is hard to sit still: 0 = Not at all Becoming easily annoyed or irritable: 0 = Not at all Feeling afraid as if something awful might happen: 0 = Not at all Total JOHN-7 score (0-4 normal; 5-9 mild; 10-14 moderate; 15-21 severe): 0 Source: Developed by Drs. Ricardo Nelson, Lucinda Matamoros, Kareem Timmons and colleagues, with an educational luz maria from [employer]. Review of Systems Const Denies chills, Denies fatigue, Denies fever(s), Denies headache(s), Denies malaise and Denies weakness Eyes Denies blurry vision, Denies change in vision, Denies irritation and Denies itchy eyes ENT Denies dysphagia, Denies dizziness, Denies otalgia, Denies headache(s), Denies nasal congestion, Denies neck pain, Denies odynophagia and Denies sore throat Card Denies chest pain, Denies rapid heart rate, Denies irregular heart rhythm, Denies palpitations and Denies dyspnea Resp Denies chest congestion, Denies cough, Denies dyspnea and Denies wheezing GI Denies abdominal pain, Denies bloating, Denies constipation, Denies dysphagia, Denies heartburn, Denies diarrhea, Denies nausea, Denies odynophagia and Denies vomiting Denies hematuria, Denies difficulty urinating, Denies dysuria, Denies urinary frequency and Denies urinary urgency Musc Denies back pain, Denies arthralgias, Denies joint swelling, Denies muscle weakness and Denies neck pain Skin/Breast Denies change in pigmentation, Denies lesions, Denies rash and Denies unusual bruising Neuro Denies dizziness, Denies headache(s), Denies paresthesias and Denies weakness Endo Denies fatigue and Denies palpitations Aller/Immun Denies itchy eyes and Denies wheezing Physical exam (Primary Care) Vital Signs: Last Vital Signs Pulse 67 10/15/22 08:59 BP 110/70 10/15/22 08:59 Pulse Ox 97 10/15/22 08:59 Oxygen Delivery Method Room Air 10/15/22 08:59 BMI result Body Mass Index 26.3 Tobacco/Smoking Status: Tobacco use Status Tobacco use date assessed 10/15/22 10/15/22 09:04 Patient Tobacco Use Status Former Tobacco user 10/15/22 09:04 Tobacco use type Cigarette 10/15/22 09:04 e-Cigarette/Vaping Use Never Used 10/15/22 09:04 PHQ-9: PHQ-9 Score PHQ-9: Total score 0 10/15/22 09:04 Depression Screening Interpretation: Negative Thrive Assessment: Date of Thrive Assessment Date Thrive assessed 10/15/22 10/15/22 09:04 Currently or been in a relationship where the following occur: no concerns reported Const General: no acute distress, alert and awake Orientation/consciousness: patient oriented x3 HENMT Head: Yes normocephalic and Yes atraumatic Ears: external ears normal, TM's normal bilaterally and EAC's normal General nose exam: No nasal discharge present Face and sinus: Yes normal facial exam and Yes sinuses nontender Teeth and gingiva: dentition normal Throat: Yes posterior oropharynx normal and Yes tonsils normal (no TP congestion) Eyes Eyelids: Yes eyelids normal Conjunctivae: conjunctivae normal Pupils: Equal, round and reactive pupils present EOM: EOMs intact bilaterally Neck Neck: Yes no lymphadenopathy and Yes supple Thyroid: Thyroid normal Resp Auscultation: clear to auscultation bilaterally, no rales and no wheezes Cardio Rate: regular rate Rhythm: regular rhythm Heart sounds: no murmurs GI Palpation (GI): Soft to palpation, nontender and No hepatosplenomegaly present Auscultation: normal bowel sounds General: Yes no CVA tenderness Back/Spine/Pelvis Back: no CVA tenderness Thoracic/Lumbar Spine: thoracic and lumbar spine normal to inspection Skin Lesions: no lesions Rashes: no rashes Neuro General: patient oriented x3, moves all extremities, no focal motor deficits and CN's II-XI intact bilaterally Cranial nerves: Yes Equal, round and reactive pupils present Cognition (Neuro): normal cognition Gait exam (Neuro): Normal gait present Extrem General: Yes no clubbing, cyanosis or edema Results Reviewed Results Reviewed: Laboratory Tests 10/11/22 10/11/22 10/11/22 06:15 06:22 06:22 WBC 5.8 Hgb 14.4 Hct 42.7 Plt Count 170 Sodium 141 Potassium 4.2 Creatinine 1.00 Estimated GFR > 60 Fasting Glucose 100 H Hemoglobin A1c % Calcium 9.5 AST 30 ALT 34 Triglycerides 75 Cholesterol 143 LDL Cholesterol, Calc 85 HDL Cholesterol 43 Vitamin B12 25-OH Vitamin D Total 55.7 TSH 3.01 Ur Specific [place] 1.010 Urine Protein Negative Urine Glucose (UA) Negative Urine Blood Negative 10/11/22 10/11/22 06:22 06:22 WBC Hgb Hct Plt Count Sodium Potassium Creatinine Estimated GFR Fasting Glucose Hemoglobin A1c % 5.2 Calcium AST ALT Triglycerides Cholesterol LDL Cholesterol, Calc HDL Cholesterol Vitamin B12 541 25-OH Vitamin D Total TSH Ur Specific [place] Urine Protein Urine Glucose (UA) Urine Blood Assessment and Plan Assessment & Plan (1) Annual physical exam: Code(s): Z00.00 - Encounter for general adult medical examination without abnormal findings Plan: Results of his labs done a few days ago reviewed and discussed with patient He is up-to-date with his colon cancer screening - due for repeat in 2025 (2) Pure hypercholesterolemia: Code(s): E78.00 - Pure hypercholesterolemia, unspecified Plan: Advised that his cholesterol levels have again improved slightly from previous on his recent labs Reinforced low cholesterol diet Continue Pravastatin 40 mg QD and Ezetimibe 10 mg QD Will recheck his labs in 4 months for follow-up (3) Type 2 diabetes mellitus without complication, without long-term current use of insulin: Comment: taking metformin QAM=glucose usually 82-103 Code(s): E11.9 - Type 2 diabetes mellitus without complications Plan: HgbA1c was again normal at 5.2% on his labs done a few days ago (was at 5.4% a few months ago) - goal is < 7.0% Reinforced diabetic diet Continue Metformin 500 mg QD; advised again that he can consider stopping his Metformin for a while to see if he still needs Rx for his diabetes or not as his HgbA1c has been normal for the past couple of years now but patient chooses to continue on Metformin at this time (4) COPD (chronic obstructive pulmonary disease): Comment: mild per patient-does not use inhalers or oxygen Code(s): J44.9 - Chronic obstructive pulmonary disease, unspecified Qualifiers: COPD type: unspecified COPD Qualified Code(s): J44.9 - Chronic obstructive pulmonary disease, unspecified Plan: Stable Continue ProAir HFA 2 puffs 4 times a day as needed - has not had to use his inhaler lately (5) GERD without esophagitis: Code(s): K21.9 - Gastro-esophageal reflux disease without esophagitis Plan: Dietary restrictions reinforced Continue Omeprazole 20 mg QD (6) GONZALEZ (nonalcoholic steatohepatitis): Code(s): K75.81 - Nonalcoholic steatohepatitis (GONZALEZ) Plan: Resolved - LFTs?have remained normal on his recent labs; will continue to monitor his LFTs regularly Reinforced avoidance of alcohol and Acetaminophen-containing medications (7) Arthritis of finger of both hands: Code(s): M19.041 - Primary osteoarthritis, right hand; M19.042 - Primary osteoarthritis, left hand Plan: Xrays of both hands done a few months ago revealed (+) some erosive changes in the DIP joints suggestive of psoriatic arthritis Patient denies any skin lesions or rash Was referred previously to rheumatology for further evaluation and management although it appears that he has never been scheduled or seen yet Was started on Meloxicam Rx previously but patient did not fill his Rx as he reportedly had to pay out a high co-pay for the medication and he cannot afford the Rx Advised that he can try taking some OTC Ibuprofen occasionally if he needs to to help with his joint pains (8) Overweight (BMI 25.0-29.9): Code(s): E66.3 - Overweight Plan: Reinforced diet/exercise as tolerated/lose weight Plan Follow up in 4 months Orders: Orders Vitamin B12 and Folate 4 Months E53.8 - Deficiency of other specified B group vitamins Comprehensive [place]. Panel Fast 4 Months E78.00 - Pure hypercholesterolemia, unspecified Hemoglobin A1c 4 Months E11.9 - Type 2 diabetes mellitus without complications Lipid Panel 4 Months E78.00 - Pure hypercholesterolemia, unspecified TSH reflex Free T4 4 Months E78.00 - Pure hypercholesterolemia, unspecified Vitamin D 25-OH Total 4 Months E55.9 - Vitamin D deficiency, unspecified Microalbumin, Random (w Creat) 4 Months E11.9 - Type 2 diabetes mellitus without complications Complete Blood Count Auto Diff 4 Months I10 - Essential (primary) hypertension UA CC w/rflx Micro + Cult 4 Months R30.0 - Dysuria Coding Level of Care Code Est Pt Prev Care >65y(07111) Diagnoses Annual physical exam Z00.00 Pure hypercholesterolemia E78.00 Type 2 diabetes mellitus without complication, without long-term current use of insulin E11.9 COPD (chronic obstructive pulmonary disease) J44.9 COPD type: unspecified COPD GERD without esophagitis K21.9 GONZALEZ (nonalcoholic steatohepatitis) K75.81 Arthritis of finger of both hands M19.041; M19.042 Overweight (BMI 25.0-29.9) E66.3
== END 2022-10-15 09:39 | disposition home or self-care (01) ==
PROVIDERS: PCP Internal Medicine; Visit Provider Internal Medicine
DX: Z00.00 Encounter for general adult medical examination without abnormal findings (principal); E11.9 Type 2 diabetes mellitus without complications; J44.9 Chronic obstructive pulmonary disease, unspecified; K21.9 Gastro-esophageal reflux disease without esophagitis; E78.00 Pure hypercholesterolemia, unspecified; K75.81 Nonalcoholic steatohepatitis (NASH); M19.041 Primary osteoarthritis, right hand; M19.042 Primary osteoarthritis, left hand; E66.3 Overweight
CPT/HCPCS: 99397

== ENCOUNTER 2023-03-03 07:07 | Outpatient (REF) | payer OTHER, SELFPAY ==
[2023-03-03 07:20] LABS: MANUAL DIFF FLAG NO
[2023-03-03 07:45] LABS: Basophils Absolute Auto 0.1 X10*3/uL (0.0-0.2); Basophils Percent Auto 1.1 % (0-2); Eosinophils Absolute Auto 0.1 X10*3/uL (0.0-0.4); Hematocrit 45.4 % (42.0-52.0); Hemoglobin 15.8 g/dl (14.0-18.0); Imm Gran Abs Auto 0.02 X10*3/uL (0.00-0.03); Imm Gran Pct Auto 0.3 % (0.0-0.4); Lymphocytes Absolute Auto 1.4 X10*3/uL (1.2-4.9); Lymphocytes Percent Auto 21.3 % (20-40); Mean Corpuscular HGB Conc 34.8 g/dl (31.0-36.0); Mean Corpuscular Volume 89.2 fL (80.0-98.0); Mean Platelet Volume 9.8 fL (9.4-12.4); Monocytes Absolute Auto 0.7 X10*3/uL (0.1-1.2); Monocytes Percent Auto 10.7 % (2-11); Neutrophils Absolute Auto 4.2 x10*3/uL (2.0-8.3); Neutrophils Percent Auto 64.6 % (45-73); Platelet Count 184 X10*3/uL (160-400); Red Blood Count 5.09 X10*6/uL (4.60-5.80); White Blood Count 6.6 X10*3/uL (4.8-10.8)
[2023-03-03 07:50] LABS: Estimated Average Glucose 105 mg/dL; Hemoglobin A1c % 5.3 % (<6.0)
[2023-03-03 07:50] LABS: Appearance Urine Clear; Color Urine Yellow; Glucose Urine UA Negative (Negative); Leukocyte Esterase Urine Negative (Negative); Nitrite Urine Negative (Negative); PH 6.5 (5.0-9.0); Specific Gravity - Urine <= 1.005 (1.005-1.025); Urine Blood Negative (Negative); Urine Ketones Negative (Negative); Urine Protein Negative (Neg-Trace)
[2023-03-03 08:19] LABS: Alanine Aminotransferase 37 U/L (0-40); Albumin Level 4.4 g/dL (3.5-5.0); Alkaline Phosphatase 80 U/L (39-117); Anion Gap 13 (12-20); Aspartate Amino Transferase 30 U/L (5-37); Bilirubin Total 0.7 mg/dL (0.0-1.0); Blood Urea Nitrogen 19 mg/dL (9-16); Calcium 9.7 mg/dL (8.4-10.2); Carbon Dioxide 25 mmol/L (22-29); Chloride 107 mmol/L (96-108); Cholesterol 153 mg/dL (<200); Estimated Glomerular Filt Rate > 60; Glucose Fasting 105 mg/dL (60-99); HDL Cholesterol 41 mg/dL (>40); LDL Cholesterol Calculated 88 mg/dL (<100); Potassium 3.9 mmol/L (3.3-5.1); Sodium 141 mmol/L (135-145); Total Protein 7.1 g/dL (6.5-8.0); Triglycerides 124 mg/dL (<150)
[2023-03-03 08:23] LABS: Creatinine Urine 23.34 mg/dL; Microalbumin Urine < 5.0 mg/L
[2023-03-03 08:37] LABS: Folate 11.9 ng/mL (> or = 4.0); TSH reflex Free T4 3.32 uIU/mL (0.32-4.0); Vitamin B12 497 pg/mL (200-900); Vitamin D 25-OH Total 46.8 ng/mL (>30)
== END 2023-03-03 07:08 | disposition home or self-care (01) ==
LOC: HO.LAB 07:07
PROVIDERS: PCP Internal Medicine; Visit Provider Internal Medicine
DX: I10 Essential (primary) hypertension (principal); E11.9 Type 2 diabetes mellitus without complications; E78.00 Pure hypercholesterolemia, unspecified; E55.9 Vitamin D deficiency, unspecified; E53.8 Deficiency of other specified B group vitamins; R30.0 Dysuria
CPT/HCPCS: 36415; 80053; 80061; 81003; 82043; 82306; 82570; 82607; 82746; 83036; 84443; 85025

== ENCOUNTER 2023-03-10 12:20 | Outpatient (AMB) | payer OTHER, SELFPAY ==
[2023-03-10 12:33] VITALS: BP 130/82; PULSE 69; O2SAT 98; BMI 27.1
--- NOTE | 2023-03-10 12:33 | MHC.PC.OV ---
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 Accompanied by: Self / Same As Patient Allergies Penicillins [PCN] Allergy (Intermediate, Verified 03/10/23 12:46) RASH Sulfa (Sulfonamide Antibiotics) [SULFA (SULFONAMIDE ANTIBIOTICS)] Allergy (Intermediate, Verified 03/10/23 12:46) RASH ragweed and dust Allergy (Intermediate, Uncoded 03/10/23 12:46) Sneezing Medication List - Last Reconciled 03/10/23 by Craig Vega MD blood sugar diagnostic ([employer] Verio test strips) 1 strip miscellaneous DAILY cholecalciferol (vitamin D3) (Vitamin D3) 25 mcg PO DAILY ezetimibe 10 mg PO DAILY 90 days meloxicam 7.5 mg PO DAILY PRN 30 days metformin 500 mg PO DAILY 90 days omeprazole 20 mg PO QAM pravastatin 40 mg PO DAILY 90 days Tobacco use date assessed: 03/10/23 Fall risk assessment: No Falls in past year Last assessed Fall Risk: 03/10/23 Dental Screening Dental Screen Date: 03/10/23 Did you have a dental visit in the last 12 months?: Yes Did you have a dental problem in the last 6 months where you did not have access to dental care?: No Was dental information given to patient?: Patient has dentist HPI hyperlipidemia, dm,oa, gerd HPI Details Patient comes in today for his follow up visit States that he is feeling a little depressed as his daughter was recently diagnosed with cancer and is scheduled for surgery at the [facility] tomorrow States that he feels okay physically He denies any headaches or dizziness Denies any chest pains, no SOB No nausea/vomiting, no abdominal pain No change in bowel habits noted Had his follow up labs done last week - to discuss his results [facility] Medical History Arthritis Overweight (BMI 25.0-29.9) GONZALEZ (nonalcoholic steatohepatitis) GERD without esophagitis COPD (chronic obstructive pulmonary disease) Pure hypercholesterolemia Type 2 diabetes mellitus without complication, without long-term current use of insulin Surgical History H/O colonoscopy (~01/09/21) Family History Father Lung cancer Smoker Mother Congestive heart failure Social History Housing: House Are you a primary client care specialist to a significant other at home: No Do you presently have visiting nurse or other home services: No Alcohol intake: former Patient Tobacco Use Status: Former Tobacco user Quit Date: 1977 Tobacco use type: Cigarette e-Cigarette/Vaping Use: Never Used Second Hand Smoke Exposure: Yes service: No Current occupational status: retired Cognitive needs: No Hearing needs: No Vision needs: No Questionnaire PHQ-9 Over the last 2 weeks, how often have you been bothered by any of the following problems? 1. Little interest or pleasure in doing things: not at all 2. Feeling down, depressed, or hopeless: not at all 3. Trouble falling or staying asleep, or sleeping too much: not at all 4. Feeling tired or having little energy: not at all 5. Poor appetite or overeating: not at all 6. Feeling bad about yourself - or that you are a failure or have let yourself or your family down: not at all 7. Trouble concentrating on things, such as reading the newspaper or watching television: not at all 8. Moving or speaking so slowly that other people could have noticed. Or the opposite - being so fidgety or restless that you have been moving around a lot more than usual: not at all 9. Thoughts that you would be better off or of hurting yourself in some way: not at all Total score: 0 Depression Screening Interpretation: Negative Depression Screening Done: Yes 42103 - PHQ-9 Billing: Yes Source: Developed by Drs. Ricardo Nelson, Lucinda Matamoros, Kareem Timmons and colleagues, with an educational luz maria from [employer]. Thrive Questionnaire Date Thrive assessed: 03/10/23 I am a: Patient What is your living situation today?: I have a steady place to live Within the past 12 months, did the food you bought not last and you didn't have the money to get more?: Never true Within the past 12 months, did you worry whether your food would run out before you got money to buy more?: Never true Do you have trouble paying for medicines?: No Do you have trouble getting transportation to medical appointments?: No Do you have trouble paying your heating and electricity bill?: No Do you have trouble taking care of your child, family member or friend?: No Do you have trouble with day-to-day activities such as bathing, preparing meals, shopping, managing finances, etc.?: No Are you currently unemployed and looking for a job?: No Are you interested in more education?: No Please select the resources that you would like help with: None Currently or been in a relationship where the following occur: no concerns reported THRIVE Score: 0 AUDIT C Alcohol Use Questionnaire (AUDIT-C) 1. How often do you have a drink containing alcohol?: Never 3. How often do you have six or more drinks on one occasion?: Never Total Score: 0 Score Reviewed/Action Taken: Yes JOHN-7 AMB Questionnaire JOHN-7 Date JOHN - 7 assessed: 03/10/23 Feeling nervous, anxious, or on edge: 0 = Not at all Not being able to stop or control worryin = Not at all Worrying too much about different things: 0 = Not at all Trouble relaxin = Not at all Being so restless that it is hard to sit still: 0 = Not at all Becoming easily annoyed or irritable: 0 = Not at all Feeling afraid as if something awful might happen: 0 = Not at all Total JOHN-7 score (0-4 normal; 5-9 mild; 10-14 moderate; 15-21 severe): 0 Source: Developed by Drs. Ricardo Nelson, Lucinda Matamoros, Kareem Timmons and colleagues, with an educational luz maria from [employer]. Review of Systems Const Denies chills, Denies fatigue, Denies fever(s) and Denies headache(s) ENT Denies dysphagia, Denies dizziness, Denies otalgia, Denies headache(s), Denies neck pain, Denies odynophagia and Denies sore throat Card Denies chest pain, Denies palpitations and Denies dyspnea Resp Denies cough, Denies dyspnea and Denies wheezing GI Denies abdominal pain, Denies constipation, Denies dysphagia, Denies heartburn, Denies diarrhea, Denies nausea, Denies odynophagia and Denies vomiting Denies dysuria, Denies nocturia and Denies urinary frequency Musc Denies back pain, Denies arthralgias (states that his previous joint pains have improved with Meloxicam), Denies joint swelling, Denies muscle weakness and Denies neck pain Skin/Breast Denies rash Neuro Denies dizziness and Denies headache(s) Endo Denies fatigue and Denies palpitations Aller/Immun Denies wheezing Physical exam (Primary Care) Vital Signs: Last Vital Signs Pulse 69 03/10/23 12:33 BP 130/82 03/10/23 12:33 Pulse Ox 98 03/10/23 12:33 Oxygen Delivery Method Room Air 03/10/23 12:33 BMI result Body Mass Index 27.1 Tobacco/Smoking Status: Tobacco use Status Tobacco use date assessed 03/10/23 03/10/23 12:40 Patient Tobacco Use Status Former Tobacco user 03/10/23 12:40 Tobacco use type Cigarette 03/10/23 12:40 e-Cigarette/Vaping Use Never Used 03/10/23 12:40 PHQ-9: PHQ-9 Score PHQ-9: Total score 0 03/10/23 12:40 Depression Screening Interpretation: Negative Thrive Assessment: Date of Thrive Assessment Date Thrive assessed 03/10/23 03/10/23 12:40 Currently or been in a relationship where the following occur: no concerns reported Const General: no acute distress and alert HENMT Ears: TM's normal bilaterally and EAC's normal Throat: Yes posterior oropharynx normal and Yes tonsils normal (no TP congestion) Neck Neck: Yes no lymphadenopathy and Yes supple Resp Auscultation: clear to auscultation bilaterally, no rales and no wheezes Cardio Rate: regular rate Rhythm: regular rhythm Heart sounds: no murmurs GI Palpation (GI): Soft to palpation and nontender Auscultation: normal bowel sounds Back/Spine/Pelvis Cervical Spine: No Cervical spine tenderness Thoracic/Lumbar Spine: No lumbar spinal tenderness Skin Rashes: no rashes Extrem General: Yes no clubbing, cyanosis or edema Results Reviewed Results Reviewed: Laboratory Tests 03/03/23 03/03/23 03/03/23 07:11 07:11 07:18 WBC 6.6 Hgb 15.8 Hct 45.4 Plt Count 184 Sodium 141 Potassium 3.9 Creatinine 1.07 Estimated GFR > 60 Fasting Glucose 105 H Hemoglobin A1c % 5.3 Calcium 9.7 AST 30 ALT 37 Triglycerides 124 Cholesterol 153 LDL Cholesterol, Calc 88 HDL Cholesterol 41 Vitamin B12 25-OH Vitamin D Total TSH Ur Specific [place] <= 1.005 Urine Protein Negative Urine Glucose (UA) Negative Urine Blood Negative 03/03/23 03/03/23 07:18 07:18 WBC Hgb Hct Plt Count Sodium Potassium Creatinine Estimated GFR Fasting Glucose Hemoglobin A1c % Calcium AST ALT Triglycerides Cholesterol LDL Cholesterol, Calc HDL Cholesterol Vitamin B12 497 25-OH Vitamin D Total 46.8 TSH 3.32 Ur Specific [place] Urine Protein Urine Glucose (UA) Urine Blood Assessment and Plan Assessment & Plan (1) Pure hypercholesterolemia: Code(s): E78.00 - Pure hypercholesterolemia, unspecified Plan: Results of his labs done last week reviewed and discussed with patient Reinforced low cholesterol diet Continue Pravastatin 40 mg QD and Ezetimibe 10 mg QD Will recheck his labs and fasting lipids in 4 months for follow-up (2) Type 2 diabetes mellitus without complication, without long-term current use of insulin: Comment: taking metformin QAM=glucose usually 82-103 Code(s): E11.9 - Type 2 diabetes mellitus without complications Plan: HgbA1c remained normal at 5.3% on his labs done last week (was at 5.2% a few months ago) - goal is < 7.0% Reinforced diabetic diet Continue Metformin 500 mg QD; he was advised previously that he can consider stopping his Metformin for a while to see if he still needs Rx for his diabetes or not as his HgbA1c has been normal for the past couple of years now but patient chooses to continue on Metformin at this time (3) COPD (chronic obstructive pulmonary disease): Comment: mild per patient-does not use inhalers or oxygen Code(s): J44.9 - Chronic obstructive pulmonary disease, unspecified Qualifiers: COPD type: unspecified COPD Qualified Code(s): J44.9 - Chronic obstructive pulmonary disease, unspecified Plan: Stable Continue Ventolin HFA 2 puffs 4 times a day only as needed - has not had to use his inhaler lately (4) GERD without esophagitis: Code(s): K21.9 - Gastro-esophageal reflux disease without esophagitis Plan: Dietary restrictions reinforced Continue Omeprazole 20 mg QD (5) GONZALEZ (nonalcoholic steatohepatitis): Code(s): K75.81 - Nonalcoholic steatohepatitis (GONZALEZ) Plan: Resolved - LFTs?have remained normal on his recent labs; will continue to monitor his LFTs regularly Reinforced avoidance of alcohol and Acetaminophen-containing medications (6) Arthritis of finger of both hands: Code(s): M19.041 - Primary osteoarthritis, right hand; M19.042 - Primary osteoarthritis, left hand Plan: Xrays of both hands done a few months ago revealed (+) some erosive changes in the DIP joints suggestive of psoriatic arthritis Patient denies any skin lesions or rash He was referred previously to rheumatology for further evaluation and management but it appears that he was never scheduled or seen States that his joint pains have improved a lot with Meloxicam and he has not needed to take this lately - takes it only as needed As he currently has not had any significant issues with joint pains, does not wish to see rheumatology at this time (7) Overweight (BMI 25.0-29.9): Code(s): E66.3 - Overweight Plan: Reinforced diet/exercise as tolerated/lose weight Plan Follow up in 4 months Orders: Orders Comprehensive [place]. Panel Fast 4 Months E78.00 - Pure hypercholesterolemia, unspecified Lipid Panel 4 Months E78.00 - Pure hypercholesterolemia, unspecified C Reactive Protein 4 Months M25.50 - Pain in unspecified joint TSH reflex Free T4 4 Months E78.00 - Pure hypercholesterolemia, unspecified Vitamin D 25-OH Total 4 Months E55.9 - Vitamin D deficiency, unspecified Complete Blood Count Auto Diff 4 Months D64.9 - Anemia, unspecified Hemoglobin A1c 4 Months E11.9 - Type 2 diabetes mellitus without complications Erythrocyte Sedimentation Rate 4 Months M25.50 - Pain in unspecified joint Microalbumin, Random (w Creat) 4 Months E11.9 - Type 2 diabetes mellitus without complications UA CC w/rflx Micro + Cult 4 Months R30.0 - Dysuria Coding Level of Care Code Est Pt Level 4 (59446) Diagnoses Pure hypercholesterolemia E78.00 Type 2 diabetes mellitus without complication, without long-term current use of insulin E11.9 Chronic obstructive pulmonary disease, unspecified COPD type J44.9 COPD type: unspecified COPD GERD without esophagitis K21.9 GONZALEZ (nonalcoholic steatohepatitis) K75.81 Arthritis of finger of both hands M19.041; M19.042 Overweight (BMI 25.0-29.9) E66.3
== END 2023-03-10 12:58 | disposition home or self-care (01) ==
PROVIDERS: PCP Internal Medicine; Visit Provider Internal Medicine
DX: E78.00 Pure hypercholesterolemia, unspecified (principal); E11.9 Type 2 diabetes mellitus without complications; J44.9 Chronic obstructive pulmonary disease, unspecified; K21.9 Gastro-esophageal reflux disease without esophagitis; K75.81 Nonalcoholic steatohepatitis (NASH); M19.041 Primary osteoarthritis, right hand; M19.042 Primary osteoarthritis, left hand; E66.3 Overweight
CPT/HCPCS: 99214

== ENCOUNTER 2023-09-08 06:23 | Outpatient (REF) | payer OTHER, SELFPAY ==
[2023-09-08 06:50] LABS: MANUAL DIFF FLAG NO
[2023-09-08 08:02] LABS: Basophils Absolute Auto 0.1 X10*3/uL (0.0-0.2); Basophils Percent Auto 1.2 % (0-2); Eosinophils Absolute Auto 0.2 X10*3/uL (0.0-0.4); Eosinophils Percent Auto 2.8 % (0-4); Hemoglobin 14.8 g/dl (14.0-18.0); Imm Gran Abs Auto 0.02 X10*3/uL (0.00-0.03); Imm Gran Pct Auto 0.3 % (0.0-0.4); Lymphocytes Absolute Auto 1.3 X10*3/uL (1.2-4.9); Mean Corpuscular HGB Conc 35.2 g/dl (31.0-36.0); Mean Corpuscular Hemoglobin 31.4 pg (27.0-33.0); Mean Platelet Volume 9.9 fL (9.4-12.4); Monocytes Absolute Auto 0.6 X10*3/uL (0.1-1.2); Monocytes Percent Auto 10.6 % (2-11); Neutrophils Absolute Auto 3.6 x10*3/uL (2.0-8.3); Neutrophils Percent Auto 63.1 % (45-73); Platelet Count 211 X10*3/uL (160-400); Red Blood Count 4.72 X10*6/uL (4.60-5.80); Red Cell Distribution Width 12.8 % (11.0-16.0); White Blood Count 5.8 X10*3/uL (4.8-10.8)
[2023-09-08 08:08] LABS: Estimated Average Glucose 114 mg/dL; Hemoglobin A1c % 5.6 % (<6.0)
[2023-09-08 08:32] LABS: Appearance Urine Clear; Color Urine Yellow; Glucose Urine UA Negative (Negative); Leukocyte Esterase Urine Negative (Negative); Nitrite Urine Negative (Negative); PH 6.5 (5.0-9.0); Specific Gravity - Urine <= 1.005 (1.005-1.025); Urine Blood Negative (Negative); Urine Ketones Negative (Negative); Urine Protein Negative (Neg-Trace)
[2023-09-08 08:35] LABS: Alanine Aminotransferase 33 U/L (0-40); Albumin Level 4.2 g/dL (3.5-5.0); Alkaline Phosphatase 75 U/L (39-117); Anion Gap 15 (12-20); Aspartate Amino Transferase 33 U/L (5-37); Bilirubin Total 0.6 mg/dL (0.0-1.0); Blood Urea Nitrogen 18 mg/dL (9-16); C Reactive Protein < 0.10 mg/dL (< or = 0.50); Calcium 9.9 mg/dL (8.4-10.2); Carbon Dioxide 22 mmol/L (22-29); Chloride 110 mmol/L (96-108); Cholesterol 153 mg/dL (<200); Estimated Glomerular Filt Rate > 60; Glucose Fasting 111 mg/dL (60-99); HDL Cholesterol 42 mg/dL (>40); LDL Cholesterol Calculated 91 mg/dL (<100); Sodium 143 mmol/L (135-145); Total Protein 6.6 g/dL (6.5-8.0); Triglycerides 103 mg/dL (<150)
[2023-09-08 08:40] LABS: Erythrocyte Sedimentation Rate 3 MM/HR (0-15)
[2023-09-08 08:54] LABS: TSH reflex Free T4 2.28 uIU/mL (0.32-4.0); Vitamin D 25-OH Total 50.1 ng/mL (>30)
[2023-09-08 09:52] LABS: Creatinine Urine 23.07 mg/dL; Microalbumin Urine < 5.0 mg/L
== END 2023-09-08 06:24 | disposition home or self-care (01) ==
LOC: HO.LAB 06:23
PROVIDERS: PCP Internal Medicine; Visit Provider Internal Medicine
DX: E78.00 Pure hypercholesterolemia, unspecified (principal); M25.50 Pain in unspecified joint; E55.9 Vitamin D deficiency, unspecified; D64.9 Anemia, unspecified; E11.9 Type 2 diabetes mellitus without complications; R30.0 Dysuria
CPT/HCPCS: 36415; 80053; 80061; 81003; 82043; 82306; 82570; 83036; 84443; 85025; 85652; 86140

== ENCOUNTER 2023-09-18 10:34 | Outpatient (AMB) | payer OTHER, SELFPAY ==
[2023-09-18 11:05] VITALS: BP 110/70; PULSE 65; O2SAT 98; BMI 27.7
--- NOTE | 2023-09-18 11:05 | MHC.PC.OV ---
Vital Signs 09/18/23 11:05 Height 5 ft 10 in Weight 193 lb BMI 27.7 BP 110/70 Blood Pressure Location Lt brachial Position Sitting Pulse 65 Pulse Source Pulse Oximeter Pulse Oximetry (%) 98 Oxygen Delivery Method Room Air Intake Visit Reasons: hyperlipidemia, DM, GERD, OA Allergies Penicillins [PCN] Allergy (Intermediate, Verified 09/18/23 11:36) RASH Sulfa (Sulfonamide Antibiotics) [SULFA (SULFONAMIDE ANTIBIOTICS)] Allergy (Intermediate, Verified 09/18/23 11:36) RASH ragweed and dust Allergy (Intermediate, Uncoded 09/18/23 11:36) Sneezing Medication List - Last Reconciled 09/18/23 by Craig Vega MD blood sugar diagnostic ([employer] Verio test strips) 1 strip miscellaneous DAILY cholecalciferol (vitamin D3) (Vitamin D3) 25 mcg PO DAILY ezetimibe 10 mg PO DAILY 90 days meloxicam 7.5 mg PO DAILY PRN 30 days metformin 500 mg PO DAILY 90 days omeprazole 20 mg PO QAM pravastatin 40 mg PO DAILY 90 days Tobacco use date assessed: 03/10/23 Fall risk assessment: No Falls in past year Last assessed Fall Risk: 09/18/23 Dental Screening Dental Screen Date: 03/10/23 HPI hyperlipidemia, DM, GERD, OA HPI Details Patient comes in today for his follow up visit States that he feels okay He denies any headaches or dizziness Denies any chest pains, no SOB No nausea/vomiting, no abdominal pain No change in bowel habits noted States that he is good now with his Rx but he had a hard time getting his Metformin Rx refilled over the past couple of months He had his follow up labs done early last week - to discuss his results [facility] Medical History Arthritis Overweight (BMI 25.0-29.9) GONZALEZ (nonalcoholic steatohepatitis) GERD without esophagitis COPD (chronic obstructive pulmonary disease) Pure hypercholesterolemia Type 2 diabetes mellitus without complication, without long-term current use of insulin Surgical History H/O colonoscopy (~01/09/21) Family History Father Lung cancer Smoker Mother Congestive heart failure Social History Housing: House Are you a primary healthcare administration intern to a significant other at home: No Do you presently have visiting nurse or other home services: No Alcohol intake: former Patient Tobacco Use Status: Former Tobacco user Tobacco use type: Cigarette e-Cigarette/Vaping Use: Never Used Second Hand Smoke Exposure: Yes service: No Current occupational status: retired Cognitive needs: No Hearing needs: No Vision needs: No Questionnaire Thrive Questionnaire Date Thrive assessed: 03/10/23 JOHN-7 AMB Questionnaire JOHN-7 Date JOHN - 7 assessed: 03/10/23 Source: Developed by Drs. Ricardo Nelson, Lucinda Matamoros, Kareem Timmons and colleagues, with an educational luz maria from [employer]. Review of Systems Const Denies chills, Denies fatigue, Denies fever(s) and Denies headache(s) ENT Denies dysphagia, Denies dizziness, Denies otalgia, Denies headache(s), Denies neck pain, Denies odynophagia and Denies sore throat Card Denies chest pain, Denies palpitations and Denies dyspnea Resp Denies cough, Denies dyspnea and Denies wheezing GI Denies abdominal pain, Denies constipation, Denies dysphagia, Denies heartburn, Denies diarrhea, Denies nausea, Denies odynophagia and Denies vomiting Denies dysuria, Denies nocturia and Denies urinary frequency Musc Denies back pain, Denies arthralgias (states that his previous joint pains have improved with Meloxicam), Denies joint swelling and Denies neck pain Skin/Breast Denies rash Neuro Denies dizziness and Denies headache(s) Endo Denies fatigue and Denies palpitations Aller/Immun Denies wheezing Physical exam (Primary Care) Vital Signs: Last Vital Signs Pulse 65 09/18/23 11:05 BP 110/70 09/18/23 11:05 Pulse Ox 98 09/18/23 11:05 Oxygen Delivery Method Room Air 09/18/23 11:05 BMI result Body Mass Index 27.7 Tobacco/Smoking Status: Tobacco use Status Tobacco use date assessed 03/10/23 09/18/23 11:06 Patient Tobacco Use Status Former Tobacco user 09/18/23 11:06 Tobacco use type Cigarette 09/18/23 11:06 e-Cigarette/Vaping Use Never Used 09/18/23 11:06 Thrive Assessment: Date of Thrive Assessment Date Thrive assessed 03/10/23 09/18/23 11:06 Const General: no acute distress and alert HENMT Ears: TM's normal bilaterally and EAC's normal Throat: Yes posterior oropharynx normal and Yes tonsils normal (no TP congestion) Neck Neck: Yes no lymphadenopathy and Yes supple Thyroid: Thyroid normal Resp Auscultation: clear to auscultation bilaterally, no rales and no wheezes Cardio Rate: regular rate Rhythm: regular rhythm Heart sounds: no murmurs GI Palpation (GI): Soft to palpation and nontender Auscultation: normal bowel sounds General: Yes no CVA tenderness Back/Spine/Pelvis Back: no CVA tenderness Cervical Spine: No Cervical spine tenderness Thoracic/Lumbar Spine: No lumbar spinal tenderness Skin Rashes: no rashes Extrem General: Yes no clubbing, cyanosis or edema Results Reviewed Results Reviewed: Laboratory Tests 09/08/23 09/08/23 06:40 06:48 WBC 5.8 Hgb 14.8 Hct 42.0 Plt Count 211 ESR 3 Sodium 143 Potassium 4.0 Creatinine 1.06 Estimated GFR > 60 Fasting Glucose 111 H Hemoglobin A1c % 5.6 Calcium 9.9 AST 33 ALT 33 Triglycerides 103 Cholesterol 153 LDL Cholesterol, Calc 91 HDL Cholesterol 42 25-OH Vitamin D Total 50.1 TSH 2.28 Ur Specific [place] <= 1.005 Urine Protein Negative Urine Glucose (UA) Negative Urine Blood Negative Urine Nitrite Negative Ur Leukocyte Esterase Negative Assessment and Plan Assessment & Plan (1) Pure hypercholesterolemia: Code(s): E78.00 - Pure hypercholesterolemia, unspecified Plan: Results of his labs done last week reviewed and discussed with patient - his cholesterol numbers are all still well-controlled Reinforced low cholesterol diet Continue Pravastatin 40 mg QD and Ezetimibe 10 mg QD Will recheck his labs and fasting lipids in 4 months for follow-up (2) Type 2 diabetes mellitus without complication, without long-term current use of insulin: Comment: taking metformin QAM=glucose usually 82-103 Code(s): E11.9 - Type 2 diabetes mellitus without complications Plan: His HgbA1c remained normal at 5.6% on his labs done last week (was at 5.3% a few months ago) - goal is < 7.0% Reinforced diabetic diet Continue Metformin 500 mg QD; he was advised previously that he can consider stopping his Metformin for a while to see if he still needs Rx for his diabetes or not as his HgbA1c has been normal for the past couple of years now but patient chooses to continue on Metformin at this time (3) COPD (chronic obstructive pulmonary disease): Comment: mild per patient-does not use inhalers or oxygen Code(s): J44.9 - Chronic obstructive pulmonary disease, unspecified Qualifiers: COPD type: unspecified COPD Qualified Code(s): J44.9 - Chronic obstructive pulmonary disease, unspecified Plan: Stable Continue Ventolin HFA 2 puffs 4 times a day only as needed - states that he has not had to use his inhaler lately (4) GERD without esophagitis: Code(s): K21.9 - Gastro-esophageal reflux disease without esophagitis Plan: Dietary restrictions reinforced Continue Omeprazole 20 mg QD (5) GONZALEZ (nonalcoholic steatohepatitis): Code(s): K75.81 - Nonalcoholic steatohepatitis (GONZALEZ) Plan: Resolved - his LFTs?remain normal on his recent labs; will continue to monitor his LFTs regularly Reinforced avoidance of alcohol and Acetaminophen-containing medications (6) Arthritis of finger of both hands: Code(s): M19.041 - Primary osteoarthritis, right hand; M19.042 - Primary osteoarthritis, left hand Plan: Xrays of both hands done a few months ago revealed (+) some erosive changes in the DIP joints suggestive of psoriatic arthritis Patient denies any skin lesions or rash He was referred previously to rheumatology for further evaluation and management but it appears that he was never scheduled or seen States that his joint pains have improved a lot with Meloxicam and he has not needed to take this lately - takes it only as needed As he currently has not had any significant issues with joint pains, does not wish to see rheumatology at this time (7) Overweight (BMI 25.0-29.9): Code(s): E66.3 - Overweight Plan: Reinforced diet/exercise as tolerated/lose weight Plan Follow up in 4 months Orders: Orders Comprehensive [place]. Panel Fast 4 Months E78.00 - Pure hypercholesterolemia, unspecified TSH reflex Free T4 4 Months E78.00 - Pure hypercholesterolemia, unspecified Microalbumin, Random (w Creat) 4 Months E11.9 - Type 2 diabetes mellitus without complications Hemoglobin A1c 4 Months E11.9 - Type 2 diabetes mellitus without complications Lipid Panel 4 Months E78.00 - Pure hypercholesterolemia, unspecified UA CC w/rflx Micro + Cult 4 Months R30.0 - Dysuria Coding Level of Care Code Est Pt Level 4 (51967) Complex EM visit Add On G2211 Diagnoses Pure hypercholesterolemia E78.00 Type 2 diabetes mellitus without complication, without long-term current use of insulin E11.9 Chronic obstructive pulmonary disease, unspecified COPD type J44.9 COPD type: unspecified COPD GERD without esophagitis K21.9 GONZALEZ (nonalcoholic steatohepatitis) K75.81 Arthritis of finger of both hands M19.041; M19.042 Overweight (BMI 25.0-29.9) E66.3
== END 2023-09-18 11:46 | disposition home or self-care (01) ==
PROVIDERS: PCP Internal Medicine; Visit Provider Internal Medicine
DX: E78.00 Pure hypercholesterolemia, unspecified (principal); E11.9 Type 2 diabetes mellitus without complications; J44.9 Chronic obstructive pulmonary disease, unspecified; K21.9 Gastro-esophageal reflux disease without esophagitis; K75.81 Nonalcoholic steatohepatitis (NASH); M19.041 Primary osteoarthritis, right hand; M19.042 Primary osteoarthritis, left hand; E66.3 Overweight
CPT/HCPCS: 99214; G2211

== ENCOUNTER 2024-01-01 06:17 | Outpatient (REF) | payer OTHER, SELFPAY ==
[2024-01-01 07:55] LABS: Appearance Urine Clear; Color Urine Yellow; Glucose Urine UA Negative (Negative); Leukocyte Esterase Urine Negative (Negative); Nitrite Urine Negative (Negative); PH 5.5 (5.0-9.0); Specific Gravity - Urine <= 1.005 (1.005-1.025); Urine Blood Negative (Negative); Urine Ketones Negative (Negative); Urine Protein Negative (Neg-Trace)
[2024-01-01 07:56] LABS: Estimated Average Glucose 117 mg/dL; Hemoglobin A1C 152.5579 umol/L; Hemoglobin A1c % 5.7 % (<6.0); Total Hemoglobin (HGBA1C) 3952.4651 umol/L
[2024-01-01 08:18] LABS: Alanine Aminotransferase 53 U/L (0-40); Albumin Level 4.4 g/dL (3.5-5.0); Alkaline Phosphatase 85 U/L (39-117); Anion Gap 14 (12-20); Aspartate Amino Transferase 44 U/L (5-37); Bilirubin Total 0.7 mg/dL (0.0-1.0); Blood Urea Nitrogen 25 mg/dL (9-16); Calcium 9.7 mg/dL (8.4-10.2); Carbon Dioxide 23 mmol/L (22-29); Chloride 108 mmol/L (96-108); Cholesterol 149 mg/dL (<200); Estimated Glomerular Filt Rate > 60; Glucose Fasting 108 mg/dL (60-99); HDL Cholesterol 40 mg/dL (>40); LDL Cholesterol Calculated 84 mg/dL (<100); Sodium 141 mmol/L (135-145); Total Protein 6.8 g/dL (6.5-8.0); Triglycerides 126 mg/dL (<150)
[2024-01-01 08:37] LABS: TSH reflex Free T4 2.17 uIU/mL (0.32-4.0)
[2024-01-01 09:36] LABS: Creatinine Urine 29.07 mg/dL; Microalbumin Urine < 5.0 mg/L
== END 2024-01-01 06:18 | disposition home or self-care (01) ==
LOC: HO.LAB 06:17
PROVIDERS: PCP Internal Medicine; Visit Provider Internal Medicine
DX: E78.00 Pure hypercholesterolemia, unspecified (principal); E11.9 Type 2 diabetes mellitus without complications; R30.0 Dysuria
CPT/HCPCS: 36415; 80053; 80061; 81003; 82043; 82570; 83036; 84443

== ENCOUNTER 2024-01-07 12:46 | Outpatient (AMB) | payer OTHER, SELFPAY ==
[2024-01-07 12:48] VITALS: BP 108/76; PULSE 67; O2SAT 95; BMI 28.7
--- NOTE | 2024-01-07 12:48 | A.OFFPC_ITS ---
Vital Signs 01/07/24 12:48 Height 5 ft 10 in Weight 200 lb 4 oz BMI 28.7 BP 108/76 Blood Pressure Location Lt brachial Position Sitting Pulse 67 Pulse Source Pulse Oximeter Pulse Oximetry (%) 95 Oxygen Delivery Method Room Air Intake Visit Reasons: Annual Exam Blanker Operator Required: No Accompanied by: Self / Same As Patient Allergies Penicillins [PCN] Allergy (Intermediate, Verified 01/07/24 13:13) RASH Sulfa (Sulfonamide Antibiotics) [SULFA (SULFONAMIDE ANTIBIOTICS)] Allergy (Intermediate, Verified 01/07/24 13:13) RASH ragweed and dust Allergy (Intermediate, Uncoded 01/07/24 13:13) Sneezing Medication List - Last Reconciled 01/07/24 by Craig Vega MD blood sugar diagnostic (Geoli.st ClassifiedsTouch Verio test strips) 1 strip miscellaneous DAILY cholecalciferol (vitamin D3) (Vitamin D3) 25 mcg PO DAILY ezetimibe 10 mg PO DAILY 90 days meloxicam 7.5 mg PO DAILY PRN 30 days metformin 500 mg PO DAILY 90 days omeprazole 20 mg PO QAM pravastatin 40 mg PO DAILY 90 days Tobacco use date assessed: 01/07/24 Fall risk assessment: No Falls in past year Last assessed Fall Risk: 01/07/24 Dental Screening Dental Screen Date: 01/07/24 Did you have a dental visit in the last 12 months?: Yes Did you have a dental problem in the last 6 months where you did not have access to dental care?: No Was dental information given to patient?: Patient has dentist HPI Annual Exam HPI Details Patient comes in today for his annual physical examination States that he feels okay Denies any headaches or dizziness Denies any chest pains, no SOB No nausea/vomiting, no abdominal pain No change in bowel habits noted He denies any acute urinary symptoms He had his follow up labs done last week - to discuss his results He had his repeat colonoscopy last done on January 09 2021 and he was advised that he will need repeat colonoscopy in 5 years due to fair prep [facility] Medical History Arthritis Overweight (BMI 25.0-29.9) GONZALEZ (nonalcoholic steatohepatitis) GERD without esophagitis COPD (chronic obstructive pulmonary disease) Pure hypercholesterolemia Type 2 diabetes mellitus without complication, without long-term current use of insulin Surgical History H/O colonoscopy (~01/09/21) Family History Father Lung cancer Smoker Mother Congestive heart failure Social History Housing: House Are you a primary home care specialist to a significant other at home: No Do you presently have visiting nurse or other home services: No Alcohol intake: former Patient Tobacco Use Status: Former Tobacco user Tobacco use type: Cigarette e-Cigarette/Vaping Use: Never Used Second Hand Smoke Exposure: Yes service: No Current occupational status: retired Cognitive needs: No Hearing needs: No Vision needs: No Questionnaire PHQ-9 Over the last 2 weeks, how often have you been bothered by any of the following problems? 1. Little interest or pleasure in doing things: not at all 2. Feeling down, depressed, or hopeless: not at all 3. Trouble falling or staying asleep, or sleeping too much: not at all 4. Feeling tired or having little energy: not at all 5. Poor appetite or overeating: not at all 6. Feeling bad about yourself - or that you are a failure or have let yourself or your family down: not at all 7. Trouble concentrating on things, such as reading the newspaper or watching television: not at all 8. Moving or speaking so slowly that other people could have noticed. Or the opposite - being so fidgety or restless that you have been moving around a lot more than usual: not at all 9. Thoughts that you would be better off or of hurting yourself in some way: not at all Total score: 0 Depression Screening Interpretation: Negative Depression Screening [place]: [place] 65755 - PHQ-9 Billing: Yes Source: Developed by Drs. Ricardo Nelson, Lucinda Matamoros, Kareem Timmons and colleagues, with an educational luz maria from [employer]. Thrive Questionnaire Date Thrive assessed: 01/07/24 I am a: Patient What is your living situation today?: I have a steady place to live Within the past 12 months, did the food you bought not last and you didn't have the money to get more?: I choose not to answer this question Within the past 12 months, did you worry whether your food would run out before you got money to buy more?: I choose not to answer this question Do you have trouble paying for medicines?: I choose not to answer this question Do you have trouble getting transportation to medical appointments?: I choose not to answer this question Do you have trouble paying your heating and electricity bill?: I choose not to answer this question Do you have trouble taking care of your child, family member or friend?: I choose not to answer this question Do you have trouble with day-to-day activities such as bathing, preparing meals, shopping, managing finances, etc.?: No Are you currently unemployed and looking for a job?: I choose not to answer this question Are you interested in more education?: No Please select the resources that you would like help with: None Currently or been in a relationship where the following occur: No concerns reported THRIVE Score: 0 AUDIT C Alcohol Use Questionnaire (AUDIT-C) 1. How often do you have a drink containing alcohol?: Monthly or less 2. How many drinks containing alcohol do you have on a typical day when you are drinking?: 1 or 2 3. How often do you have six or more drinks on one occasion?: Never Total Score: 1 Score Reviewed/Action Taken: Yes JOHN-7 AMB Questionnaire JOHN-7 Date JOHN - 7 assessed: 01/07/24 Feeling nervous, anxious, or on edge: 0 = Not at all Not being able to stop or control worryin = Not at all Worrying too much about different things: 0 = Not at all Trouble relaxin = Not at all Being so restless that it is hard to sit still: 0 = Not at all Becoming easily annoyed or irritable: 0 = Not at all Feeling afraid as if something awful might happen: 0 = Not at all Total JOHN-7 score (0-4 normal; 5-9 mild; 10-14 moderate; 15-21 severe): 0 Source: Developed by Drs. Ricardo Nelson, Lucinda Matamoros, Kareem Timmons and colleagues, with an educational luz maria from [employer]. Review of Systems Const Denies chills, Denies fatigue, Denies fever(s), Denies headache(s), Denies malaise and Denies weakness Eyes Denies blurry vision, Denies change in vision, Denies irritation and Denies itchy eyes ENT Denies dysphagia, Denies dizziness, Denies otalgia, Denies headache(s), Denies nasal congestion, Denies neck pain, Denies odynophagia and Denies sore throat Card Denies chest pain, Denies rapid heart rate, Denies irregular heart rhythm, Denies palpitations and Denies dyspnea Resp Denies chest congestion, Denies cough, Denies dyspnea and Denies wheezing GI Denies abdominal pain, Denies bloating, Denies constipation, Denies dysphagia, Denies heartburn, Denies diarrhea, Denies nausea, Denies odynophagia and Denies vomiting Denies hematuria, Denies difficulty urinating, Denies dysuria, Denies urinary frequency and Denies urinary urgency Musc Denies back pain, Denies arthralgias, Denies joint swelling, Denies muscle weakness and Denies neck pain Skin/Breast Denies change in pigmentation, Denies lesions, Denies rash and Denies unusual bruising Neuro Denies dizziness, Denies headache(s), Denies paresthesias and Denies weakness Endo Denies fatigue and Denies palpitations Aller/Immun Denies itchy eyes and Denies wheezing Physical exam (Primary Care) Vital Signs: Last Vital Signs Pulse 67 01/07/24 12:48 BP 108/76 01/07/24 12:48 Pulse Ox 95 01/07/24 12:48 Oxygen Delivery Method Room Air 01/07/24 12:48 BMI result Body Mass Index 28.7 Tobacco/Smoking Status: Tobacco use Status Tobacco use date assessed 01/07/24 01/07/24 12:52 Patient Tobacco Use Status Former Tobacco user 01/07/24 12:52 Tobacco use type Cigarette 01/07/24 12:52 e-Cigarette/Vaping Use Never Used 01/07/24 12:52 Depression Screening Interpretation: Negative Thrive Assessment: Date of Thrive Assessment Date Thrive assessed 01/07/24 01/07/24 12:52 Currently or been in a relationship where the following occur: No concerns reported Const General: no acute distress, alert and awake Orientation/consciousness: patient oriented x3 HENMT Head: Yes normocephalic and Yes atraumatic Ears: external ears normal, TM's normal bilaterally and EAC's normal General nose exam: No nasal discharge present Face and sinus: Yes normal facial exam and Yes sinuses nontender Teeth and gingiva: dentition normal Throat: Yes posterior oropharynx normal and Yes tonsils normal (no TP congestion) Eyes Eyelids: Yes eyelids normal Conjunctivae: conjunctivae normal Pupils: Equal, round and reactive pupils present EOM: EOMs intact bilaterally Neck Neck: Yes no lymphadenopathy and Yes supple Thyroid: Thyroid normal Resp Auscultation: clear to auscultation bilaterally, no rales and no wheezes Cardio Rate: regular rate Rhythm: regular rhythm Heart sounds: no murmurs GI Palpation (GI): Soft to palpation, nontender and No hepatosplenomegaly present Auscultation: normal bowel sounds General: Yes no CVA tenderness Back/Spine/Pelvis Back: no CVA tenderness Thoracic/Lumbar Spine: thoracic and lumbar spine normal to inspection Skin Lesions: no lesions Rashes: no rashes Neuro General: patient oriented x3, moves all extremities, no focal motor deficits and CN's II-XI intact bilaterally Cranial nerves: Yes Equal, round and reactive pupils present Cognition (Neuro): normal cognition Gait exam (Neuro): Normal gait present Extrem General: Yes no clubbing, cyanosis or edema Results Reviewed Results Reviewed: Laboratory Tests 09/08/23 01/01/24 01/01/24 06:48 06:22 06:31 WBC 5.8 Hgb 14.8 Hct 42.0 Plt Count 211 Sodium 141 Potassium 4.0 Creatinine 0.99 Estimated GFR > 60 Fasting Glucose 108 H Hemoglobin A1c % 5.7 Calcium 9.7 AST 44 H ALT 53 H Triglycerides 126 Cholesterol 149 LDL Cholesterol, Calc 84 HDL Cholesterol 40 L TSH 2.17 Ur Specific [place] <= 1.005 Urine Protein Negative Urine Glucose (UA) Negative Urine Blood Negative Urine Nitrite Negative Ur Leukocyte Esterase Negative Coding Level of Care Code Est Pt Prev Care >65y(69323) Diagnoses Annual physical exam Z00.00 Pure hypercholesterolemia E78.00 Type 2 diabetes mellitus without complication, without long-term current use of insulin E11.9 Chronic obstructive pulmonary disease, unspecified COPD type J44.9 COPD type: unspecified COPD GERD without esophagitis K21.9 GONZALEZ (nonalcoholic steatohepatitis) K75.81 Arthritis of finger of both hands M19.041; M19.042 Overweight (BMI 25.0-29.9) E66.3 Additional Codes PHQ-9 - 41526 - PHQ-9 Billing: Yes ([id number]) Assessment & Plan Assessment & Plan (1) Annual physical exam: Code(s): Z00.00 - Encounter for general adult medical examination without abnormal findings Category: Medical Plan: Results of his labs done last week reviewed and discussed with patient He is up-to-date with his screening colonoscopy and will be due for repeat colonoscopy in 2025 (2) Pure hypercholesterolemia: Code(s): E78.00 - Pure hypercholesterolemia, unspecified Category: Medical Plan: Have advised patient that his fasting lipids done last week remain well controlled Reinforced low cholesterol diet Continue Pravastatin 40 mg QD and Ezetimibe 10 mg QD Will recheck his labs and fasting lipids in 4 months for follow-up (3) Type 2 diabetes mellitus without complication, without long-term current use of insulin: Comment: taking metformin QAM=glucose usually 82-103 Code(s): E11.9 - Type 2 diabetes mellitus without complications Category: Medical Plan: His HgbA1c remained normal at 5.7% on his labs done last week (was at 5.6% a few months ago) - goal is < 7.0% Reinforced diabetic diet Continue Metformin 500 mg QD; he was advised previously that he can consider stopping his Metformin for a while to see if he still needs Rx for his diabetes or not as his HgbA1c has been normal for the past couple of years now but patient chooses to continue on Metformin at this time (4) COPD (chronic obstructive pulmonary disease): Comment: mild per patient-does not use inhalers or oxygen Code(s): J44.9 - Chronic obstructive pulmonary disease, unspecified Category: Medical Qualifiers: COPD type: unspecified COPD Qualified Code(s): J44.9 - Chronic obstructive pulmonary disease, unspecified Plan: Stable Continue Ventolin HFA 2 puffs 4 times a day only as needed - states that he has not had to use his inhaler lately (5) GERD without esophagitis: Code(s): K21.9 - Gastro-esophageal reflux disease without esophagitis Category: Medical Plan: Dietary restrictions reinforced Continue Omeprazole 20 mg QD (6) GONZALEZ (nonalcoholic steatohepatitis): Code(s): K75.81 - Nonalcoholic steatohepatitis (GONZALEZ) Category: Medical Plan: Have advised patient that his LFTs have increased from previous, likely in relation to his recent weight gain, and that they are elevated again He is advised that they will resolve with weight loss Reinforced again avoidance of alcohol and Acetaminophen-containing medications Will continue to monitor his LFTs regularly (7) Arthritis of finger of both hands: Code(s): M19.041 - Primary osteoarthritis, right hand; M19.042 - Primary osteoarthritis, left hand Category: Medical Plan: Xrays of both hands done a few months ago revealed (+) some erosive changes in the DIP joints suggestive of psoriatic arthritis Patient denies any skin lesions or rash He was referred previously to rheumatology for further evaluation and management but it appears that he was never scheduled or seen States that his joint pains have improved a lot with Meloxicam and he has not needed to take this lately - takes it only as needed As he has not had any significant issues with joint pains, does not wish to see rheumatology at this time (8) Overweight (BMI 25.0-29.9): Code(s): E66.3 - Overweight Category: Medical Plan: Reinforced diet/exercise as tolerated/lose weight Plan Follow up in 4 months Orders: Orders Hemoglobin A1c 4 Months E11.9 - Type 2 diabetes mellitus without complications Complete Blood Count Auto Diff 4 Months D64.9 - Anemia, unspecified Comprehensive Blossom. Panel Fast 4 Months E78.00 - Pure hypercholesterolemia, unspecified UA CC w/rflx Micro + Cult 4 Months R30.0 - Dysuria Vitamin D 25-OH Total 4 Months E55.9 - Vitamin D deficiency, unspecified Microalbumin, Random (w Creat) 4 Months E11.9 - Type 2 diabetes mellitus without complications Lipid Panel 4 Months E78.00 - Pure hypercholesterolemia, unspecified TSH reflex Free T4 4 Months E78.00 - Pure hypercholesterolemia, unspecified Medications: Refilled metformin 500 mg PO DAILY 90 days 90 tabs 2RF
== END 2024-01-07 13:21 | disposition home or self-care (01) ==
PROVIDERS: PCP Internal Medicine; Visit Provider Internal Medicine
DX: Z00.00 Encounter for general adult medical examination without abnormal findings (principal); E78.00 Pure hypercholesterolemia, unspecified; E11.9 Type 2 diabetes mellitus without complications; J44.9 Chronic obstructive pulmonary disease, unspecified; K21.9 Gastro-esophageal reflux disease without esophagitis; K75.81 Nonalcoholic steatohepatitis (NASH); M19.041 Primary osteoarthritis, right hand; M19.042 Primary osteoarthritis, left hand; E66.3 Overweight

== ENCOUNTER → 2024-01-07 12:46 | Outpatient (BNVA) | payer OTHER, SELFPAY | PROVIDERS: PCP Internal Medicine; Visit Provider Internal Medicine | DX: Z00.00 Encounter for general adult medical examination without abnormal findings (principal); E78.00 Pure hypercholesterolemia, unspecified; E11.9 Type 2 diabetes mellitus without complications; J44.9 Chronic obstructive pulmonary disease, unspecified; K21.9 Gastro-esophageal reflux disease without esophagitis; K75.81 Nonalcoholic steatohepatitis (NASH); E66.3 Overweight; M19.041 Primary osteoarthritis, right hand; M19.042 Primary osteoarthritis, left hand | CPT/HCPCS: 96127; 99397 ==

== ENCOUNTER 2024-05-06 06:14 | Outpatient (REF) | payer MEDICARE, SELFPAY ==
[2024-05-06 06:31] LABS: MANUAL DIFF FLAG NO
[2024-05-06 07:22] LABS: Basophils Absolute Auto 0.1 X10*3/uL (0.0-0.2); Basophils Percent Auto 1.2 % (0-2); Eosinophils Absolute Auto 0.2 X10*3/uL (0.0-0.4); Eosinophils Percent Auto 2.6 % (0-4); Hematocrit 43.1 % (42.0-52.0); Hemoglobin 14.8 g/dl (14.0-18.0); Imm Gran Abs Auto 0.02 X10*3/uL (0.00-0.03); Imm Gran Pct Auto 0.3 % (0.0-0.4); Lymphocytes Absolute Auto 1.2 X10*3/uL (1.2-4.9); Lymphocytes Percent Auto 20.6 % (20-40); Mean Corpuscular HGB Conc 34.3 g/dl (31.0-36.0); Mean Corpuscular Hemoglobin 30.9 pg (27.0-33.0); Mean Platelet Volume 9.8 fL (9.4-12.4); Monocytes Absolute Auto 0.7 X10*3/uL (0.1-1.2); Neutrophils Absolute Auto 3.7 x10*3/uL (2.0-8.3); Neutrophils Percent Auto 63.3 % (45-73); Platelet Count 190 X10*3/uL (160-400); Red Blood Count 4.79 X10*6/uL (4.60-5.80); Red Cell Distribution Width 12.3 % (11.0-16.0); White Blood Count 5.8 X10*3/uL (4.8-10.8)
[2024-05-06 07:31] LABS: Appearance Urine Clear; Color Urine Yellow; Glucose Urine UA Negative (Negative); Leukocyte Esterase Urine Negative (Negative); Nitrite Urine Negative (Negative); Specific Gravity - Urine <= 1.005 (1.005-1.025); Urine Blood Negative (Negative); Urine Ketones Negative (Negative); Urine Protein Negative (Neg-Trace)
[2024-05-06 07:31] LABS: Estimated Average Glucose 117 mg/dL; Hemoglobin A1C 148.5064 umol/L; Hemoglobin A1c % 5.7 % (<6.0)
[2024-05-06 07:52] LABS: Alanine Aminotransferase 55 U/L (0-40); Albumin Level 4.2 g/dL (3.5-5.0); Alkaline Phosphatase 86 U/L (39-117); Anion Gap 11 (12-20); Aspartate Amino Transferase 40 U/L (5-37); Bilirubin Total 0.5 mg/dL (0.0-1.0); Blood Urea Nitrogen 18 mg/dL (9-16); Calcium 9.2 mg/dL (8.4-10.2); Carbon Dioxide 24 mmol/L (22-29); Chloride 111 mmol/L (96-108); Cholesterol 139 mg/dL (<200); Estimated Glomerular Filt Rate > 60; Glucose Fasting 102 mg/dL (60-99); HDL Cholesterol 39 mg/dL (>40); LDL Cholesterol Calculated 77 mg/dL (<100); Potassium 4.2 mmol/L (3.3-5.1); Sodium 142 mmol/L (135-145); Total Protein 6.9 g/dL (6.5-8.0); Triglycerides 117 mg/dL (<150)
[2024-05-06 07:57] LABS: Creatinine Urine 22.16 mg/dL; Microalbumin Urine < 5.0 mg/L
[2024-05-06 08:27] LABS: TSH reflex Free T4 2.55 uIU/mL (0.32-4.0); Vitamin D 25-OH Total 37.4 ng/mL (>30)
== END 2024-05-06 06:15 | disposition home or self-care (01) ==
LOC: HO.LAB 06:14
PROVIDERS: PCP Internal Medicine; Visit Provider Internal Medicine
DX: E11.9 Type 2 diabetes mellitus without complications (principal); D64.9 Anemia, unspecified; E55.9 Vitamin D deficiency, unspecified; E78.00 Pure hypercholesterolemia, unspecified; R30.0 Dysuria
CPT/HCPCS: 36415; 80053; 80061; 81003; 82306; 82570; 83036; 84443; 85025

== ENCOUNTER 2024-05-11 10:27 | Outpatient (AMB) | payer MEDICARE, SELFPAY ==
[2024-05-11 10:41] VITALS: BP 112/70; PULSE 87; O2SAT 93; BMI 29.3
--- NOTE | 2024-05-11 10:41 | MHC.PC.OV ---
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 Required: No Accompanied by: Self / Same As Patient Allergies Penicillins [PCN] Allergy (Intermediate, Verified 05/11/24 11:09) RASH Sulfa (Sulfonamide Antibiotics) [SULFA (SULFONAMIDE ANTIBIOTICS)] Allergy (Intermediate, Verified 05/11/24 11:09) RASH ragweed and dust Allergy (Intermediate, Uncoded 05/11/24 11:09) Sneezing Medication List - Last Reconciled 05/11/24 by Craig Vega MD blood sugar diagnostic (OneTouch Verio test strips) 1 strip miscellaneous DAILY cholecalciferol (vitamin D3) (Vitamin D3) 25 mcg PO DAILY ezetimibe 10 mg PO DAILY 90 days meloxicam 7.5 mg PO DAILY PRN 30 days metformin 500 mg PO DAILY 90 days omeprazole 20 mg PO QAM pravastatin 40 mg PO DAILY 90 days Tobacco use date assessed: 05/11/24 Fall risk assessment: No Falls in past year Last assessed Fall Risk: 05/11/24 Dental Screening Dental Screen Date: 05/11/24 Did you have a dental visit in the last 12 months?: Yes Did you have a dental problem in the last 6 months where you did not have access to dental care?: No Was dental information given to patient?: Patient has dentist HPI hyperlipidemia, DM, GONZALEZ HPI Details Patient comes in today for his follow-up visit States that he feels okay He denies any headaches or dizziness Denies any chest pains, no shortness of breath No nausea / vomiting, no abdominal pain No change in bowel habits noted He had his follow-up labs done a few days ago - to discuss his results [facility] Medical History Arthritis Overweight (BMI 25.0-29.9) GONZALEZ (nonalcoholic steatohepatitis) GERD without esophagitis COPD (chronic obstructive pulmonary disease) Pure hypercholesterolemia Type 2 diabetes mellitus without complication, without long-term current use of insulin Surgical History H/O colonoscopy (~01/09/21) Family History Father Lung cancer Smoker Mother Congestive heart failure Social History Housing: House Are you a primary manager primary care to a significant other at home: No Do you presently have visiting nurse or other home services: No Alcohol intake: former Patient Tobacco Use Status: Former Tobacco user Tobacco use type: Cigarette e-Cigarette/Vaping Use: Never Used Second Hand Smoke Exposure: Yes service: No Current occupational status: retired Cognitive needs: No Hearing needs: No Vision needs: No Questionnaire PHQ-9 Over the last 2 weeks, how often have you been bothered by any of the following problems? 1. Little interest or pleasure in doing things: not at all 2. Feeling down, depressed, or hopeless: not at all 3. Trouble falling or staying asleep, or sleeping too much: not at all 4. Feeling tired or having little energy: not at all 5. Poor appetite or overeating: not at all 6. Feeling bad about yourself - or that you are a failure or have let yourself or your family down: not at all 7. Trouble concentrating on things, such as reading the newspaper or watching television: not at all 8. Moving or speaking so slowly that other people could have noticed. Or the opposite - being so fidgety or restless that you have been moving around a lot more than usual: not at all 9. Thoughts that you would be better off or of hurting yourself in some way: not at all Total score: 0 Depression Screening Interpretation: Negative Depression Screening Done: Yes 14615 - PHQ-9 Billing: Yes Source: Developed by Drs. Ricardo Nelson, Lucinda Matamoros, Kareem Timmons and colleagues, with an educational luz maria from [employer]. Thrive Questionnaire Date Thrive assessed: 05/11/24 I am a: Patient What is your living situation today?: I have a steady place to live Within the past 12 months, did the food you bought not last and you didn't have the money to get more?: I choose not to answer this question Within the past 12 months, did you worry whether your food would run out before you got money to buy more?: I choose not to answer this question Do you have trouble paying for medicines?: I choose not to answer this question Do you have trouble getting transportation to medical appointments?: I choose not to answer this question Do you have trouble paying your heating and electricity bill?: I choose not to answer this question Do you have trouble taking care of your child, family member or friend?: I choose not to answer this question Do you have trouble with day-to-day activities such as bathing, preparing meals, shopping, managing finances, etc.?: No Are you currently unemployed and looking for a job?: I choose not to answer this question Are you interested in more education?: No Please select the resources that you would like help with: None Currently or been in a relationship where the following occur: No concerns reported THRIVE Score: 0 AUDIT C Alcohol Use Questionnaire (AUDIT-C) 1. How often do you have a drink containing alcohol?: Monthly or less 2. How many drinks containing alcohol do you have on a typical day when you are drinking?: 1 or 2 3. How often do you have six or more drinks on one occasion?: Monthly Total Score: 3 Score Reviewed/Action Taken: Yes JOHN-7 AMB Questionnaire JOHN-7 Date JOHN - 7 assessed: 05/11/24 Feeling nervous, anxious, or on edge: 0 = Not at all Not being able to stop or control worryin = Not at all Worrying too much about different things: 0 = Not at all Trouble relaxin = Not at all Being so restless that it is hard to sit still: 0 = Not at all Becoming easily annoyed or irritable: 0 = Not at all Feeling afraid as if something awful might happen: 0 = Not at all Total JOHN-7 score (0-4 normal; 5-9 mild; 10-14 moderate; 15-21 severe): 0 Source: Developed by Drs. Ricardo Nelson, Lucinda Matamoros, Kareem Timmons and colleagues, with an educational luz maria from [employer]. Review of Systems Const Denies chills, Denies fatigue, Denies fever(s) and Denies headache(s) ENT Denies dysphagia, Denies dizziness, Denies otalgia, Denies headache(s), Denies neck pain, Denies odynophagia and Denies sore throat Card Denies chest pain, Denies irregular heart rhythm, Denies palpitations and Denies dyspnea Resp Denies chest congestion, Denies cough and Denies dyspnea GI Denies abdominal pain, Denies constipation, Denies dysphagia, Denies heartburn, Denies diarrhea, Denies nausea, Denies odynophagia and Denies vomiting Denies difficulty urinating, Denies dysuria and Denies urinary frequency Musc Denies back pain, Denies arthralgias and Denies neck pain Skin/Breast Denies rash Neuro Denies dizziness, Denies headache(s) and Denies paresthesias Endo Denies fatigue and Denies palpitations Physical exam (Primary Care) Vital Signs: Last Vital Signs Pulse 87 05/11/24 10:41 BP 112/70 05/11/24 10:41 Pulse Ox 93 05/11/24 10:41 Oxygen Delivery Method Room Air 05/11/24 10:41 BMI result Body Mass Index 29.3 Tobacco/Smoking Status: Tobacco use Status Tobacco use date assessed 05/11/24 05/11/24 10:46 Patient Tobacco Use Status Former Tobacco user 05/11/24 10:46 Tobacco use type Cigarette 05/11/24 10:46 e-Cigarette/Vaping Use Never Used 05/11/24 10:46 PHQ-9: PHQ-9 Score PHQ-9: Total score 0 05/11/24 11:09 Depression Screening Interpretation: Negative Thrive Assessment: Date of Thrive Assessment Date Thrive assessed 05/11/24 05/11/24 10:46 Currently or been in a relationship where the following occur: No concerns reported Const General: no acute distress and alert HENMT Ears: TM's normal bilaterally and EAC's normal Throat: Yes posterior oropharynx normal and Yes tonsils normal (no TP congestion) Neck Neck: Yes supple and No lymphadenopathy Thyroid: Thyroid normal Resp Auscultation: clear to auscultation bilaterally, no rales and no wheezes Cardio Rate: regular rate Rhythm: regular rhythm Heart sounds: no murmurs GI Palpation (GI): Soft to palpation and nontender Auscultation: normal bowel sounds General: Yes no CVA tenderness Back/Spine/Pelvis Back: no CVA tenderness Thoracic/Lumbar Spine: No lumbar spinal tenderness Skin Rashes: no rashes Extrem General: Yes no clubbing, cyanosis or edema Results Reviewed Results Reviewed: Laboratory Tests 05/06/24 05/06/24 06:29 06:30 WBC 5.8 Hgb 14.8 Hct 43.1 Plt Count 190 Sodium 142 Potassium 4.2 Creatinine 0.90 Estimated GFR > 60 Fasting Glucose 102 H Hemoglobin A1c % 5.7 Calcium 9.2 AST 40 H ALT 55 H Triglycerides 117 Cholesterol 139 LDL Cholesterol, Calc 77 HDL Cholesterol 39 L 25-OH Vitamin D Total 37.4 TSH 2.55 Ur Specific [place] <= 1.005 Urine Protein Negative Urine Glucose (UA) Negative Urine Blood Negative Urine Nitrite Negative Ur Leukocyte Esterase Negative Coding Level of Care Code Est Pt Level 4 (39759) Complex EM visit Add On G2211 Diagnoses Pure hypercholesterolemia E78.00 Type 2 diabetes mellitus without complication, without long-term current use of insulin E11.9 Chronic obstructive pulmonary disease, unspecified COPD type J44.9 COPD type: unspecified COPD GERD without esophagitis K21.9 GONZALEZ (nonalcoholic steatohepatitis) K75.81 Arthritis of finger of both hands M19.041; M19.042 Overweight (BMI 25.0-29.9) E66.3 Additional Codes PHQ-9 - 24673 - PHQ-9 Billing: Yes ([id number]) Assessment & Plan Assessment & Plan (1) Pure hypercholesterolemia: Code(s): E78.00 - Pure hypercholesterolemia, unspecified Category: Medical Plan: Results of his labs done a few days ago reviewed and discussed with patient - have advised patient that his fasting lipids on his labs done recently remain well controlled Reinforced low cholesterol diet Continue Pravastatin 40 mg QD and Ezetimibe 10 mg QD Will recheck his labs and fasting lipids in 4 months for follow-up (2) Type 2 diabetes mellitus without complication, without long-term current use of insulin: Comment: taking metformin QAM=glucose usually 82-103 Code(s): E11.9 - Type 2 diabetes mellitus without complications Category: Medical Plan: His HgbA1c remained normal at 5.7% on his labs done a few days ago (was previously at 5.6% a few months ago) - goal is < 7.0% Reinforced diabetic diet Continue Metformin 500 mg QD; he was advised previously that he can consider stopping his Metformin for a while to see if he still needs Rx for his diabetes or not as his HgbA1c has been normal for the past couple of years now but patient chooses to continue on Metformin at this time (3) COPD (chronic obstructive pulmonary disease): Comment: mild per patient-does not use inhalers or oxygen Code(s): J44.9 - Chronic obstructive pulmonary disease, unspecified Category: Medical Qualifiers: COPD type: unspecified COPD Qualified Code(s): J44.9 - Chronic obstructive pulmonary disease, unspecified Plan: Controlled Continue Ventolin HFA 2 puffs 4 times a day only as needed - states that he has not had to use his inhaler lately (4) GERD without esophagitis: Code(s): K21.9 - Gastro-esophageal reflux disease without esophagitis Category: Medical Plan: Dietary restrictions reinforced Continue Omeprazole 20 mg QD (5) GONZALEZ (nonalcoholic steatohepatitis): Code(s): K75.81 - Nonalcoholic steatohepatitis (GONZALEZ) Category: Medical Plan: Have advised patient that his LFTs are still slightly elevated on his recent labs and are mostly unchanged from previous - are likely related to his weight and should improve/resolve with weight loss Reinforced again avoidance of alcohol and Acetaminophen-containing medications Will continue to monitor his LFTs regularly (6) Arthritis of finger of both hands: Code(s): M19.041 - Primary osteoarthritis, right hand; M19.042 - Primary osteoarthritis, left hand Category: Medical Plan: Xrays of both hands done last year revealed (+) some erosive changes in the DIP joints suggestive of psoriatic arthritis Patient denies any skin lesions or rash He was referred previously to rheumatology for further evaluation and management but it appears that he was never scheduled or seen States that his joint pains have improved a lot with Meloxicam and he has not needed to take this lately - takes it only as needed As he has not had any significant issues with joint pains, does not wish to see rheumatology at this time (7) Overweight (BMI 25.0-29.9): Code(s): E66.3 - Overweight Category: Medical Plan: Reinforced diet/exercise as tolerated/lose weight Plan Follow up in 4 months Orders: Orders Hemoglobin A1c 4 Months E11.9 - Type 2 diabetes mellitus without complications Lipid Panel 4 Months E78.00 - Pure hypercholesterolemia, unspecified Complete Blood Count Auto Diff 4 Months D64.9 - Anemia, unspecified Comprehensive [place]. Panel Fast 4 Months E78.00 - Pure hypercholesterolemia, unspecified TSH reflex Free T4 4 Months E78.00 - Pure hypercholesterolemia, unspecified UA CC w/rflx Micro + Cult 4 Months R30.0 - Dysuria Vitamin D 25-OH Total 4 Months E55.9 - Vitamin D deficiency, unspecified
== END 2024-05-11 11:22 | disposition home or self-care (01) ==
LOC: HO.HMCH 10:28
PROVIDERS: PCP Internal Medicine; Visit Provider Internal Medicine
DX: E78.00 Pure hypercholesterolemia, unspecified (principal); E11.9 Type 2 diabetes mellitus without complications; J44.9 Chronic obstructive pulmonary disease, unspecified; K21.9 Gastro-esophageal reflux disease without esophagitis; K75.81 Nonalcoholic steatohepatitis (NASH); M19.041 Primary osteoarthritis, right hand; M19.042 Primary osteoarthritis, left hand; E66.3 Overweight

== ENCOUNTER → 2024-05-11 10:27 | Outpatient (BNVA) | payer MEDICARE, SELFPAY | PROVIDERS: PCP Internal Medicine; Visit Provider Internal Medicine | DX: E78.00 Pure hypercholesterolemia, unspecified (principal); E11.9 Type 2 diabetes mellitus without complications; K21.9 Gastro-esophageal reflux disease without esophagitis; K75.81 Nonalcoholic steatohepatitis (NASH); M19.041 Primary osteoarthritis, right hand; M19.042 Primary osteoarthritis, left hand; E66.3 Overweight | CPT/HCPCS: 96127; 99212 ==

== ENCOUNTER 2024-05-26 09:31 | Outpatient (REF) | payer MEDICARE, SELFPAY ==
[2024-05-27 09:23] LABS: Mumps Virus IgG Antibody <9.00 AU/mL; Rubella IgG Antibody 4.75 Index; Rubeola IgG (Measles) >300.00 AU/mL
== END 2024-05-26 09:32 | disposition home or self-care (01) ==
LOC: HO.LAB 09:31
PROVIDERS: PCP Internal Medicine; Visit Provider Internal Medicine
DX: Z01.84 Encounter for antibody response examination (principal); Z28.39 Other underimmunization status
CPT/HCPCS: 36415; 86735; 86762; 86765

== ENCOUNTER → 2024-09-01 01:06 | Outpatient (BNV) | payer MEDICARE, SELFPAY | PROVIDERS: PCP Internal Medicine; Visit Provider Radiology Diagnostic Radiology | DX: R06.02 Shortness of breath (principal) | CPT/HCPCS: 71046 ==

== ENCOUNTER 2024-09-01 01:47 | Emergency (ER) | payer MEDICARE, SELFPAY ==
--- NOTE | 2024-09-01 | ECG_ITS ---
Test Reason : SOB Blood Pressure : */* mmHG Vent. Rate : 86 BPM Atrial Rate : 86 BPM P-R Int : 142 ms QRS Dur : 78 ms QT Int : 362 ms P-R-T Axes : 62 -2 17 degrees QTcB Int : 433 ms Normal sinus rhythm Nonspecific ST abnormality Abnormal ECG When compared with ECG of 07-Oct-2016 12:32, No significant change was found Referred By: Generic ED Physician Electronically Signed By: BRYSON JOSHI
--- NOTE | ~2024-09-01 | XR_ITS ---
CLINICAL HISTORY: sob 2 view chest x-ray Comparison: None provided Findings: The lungs are clear. Normal size heart. No acute fracture. IMPRESSION: 1. No acute findings. This document has been electronically signed by: Levy Yang MD on 09/01/2024 02:52:38
[2024-09-01 01:51] VITALS: BP 157/75; PULSE 91; RESP 20; TEMP 37.7; O2SAT 93; BMI 27.8
[2024-09-01 02:07] LABS: Hematocrit 40.3 % (42.0-52.0); Hemoglobin 14.5 g/dl (14.0-18.0); Imm Gran Abs Auto 0.02 X10*3/uL (0.00-0.03); Imm Gran Pct Auto 0.2 % (0.0-0.4); Lymphocytes Absolute Auto 1.0 X10*3/uL (1.2-4.9); MANUAL DIFF FLAG NO; Mean Corpuscular HGB Conc 36.0 g/dl (31.0-36.0); Mean Corpuscular Hemoglobin 31.2 pg (27.0-33.0); Mean Corpuscular Volume 86.7 fL (80.0-98.0); NRBC Abs Auto 0.000 X10*3/uL (0.0-0.012); NRBC Pct Auto 0.0 /100WBC (0.0-0.2); Platelet Count 158 X10*3/uL (160-400); Red Blood Count 4.65 X10*6/uL (4.60-5.80); White Blood Count 10.0 X10*3/uL (4.8-10.8)
[2024-09-01 02:17] LABS: IDNOW Serial# 6674DD1D; Strep A Nucleic Acid Negative (Negative)
[2024-09-01 02:23] LABS: Alanine Aminotransferase 33 U/L (0-40); Albumin Level 4.3 g/dL (3.5-5.0); Alkaline Phosphatase 85 U/L (39-117); Anion Gap 16 (12-20); Aspartate Amino Transferase 34 U/L (5-37); Blood Urea Nitrogen 13 mg/dL (9-16); Calcium 9.1 mg/dL (8.4-10.2); Carbon Dioxide 21 mmol/L (22-29); Chloride 108 mmol/L (96-108); Creatinine Clr Calc Pharmacy 71.6; Estimated Glomerular Filt Rate > 60; Potassium 3.7 mmol/L (3.3-5.1); Sodium 141 mmol/L (135-145); Total Protein 6.7 g/dL (6.5-8.0)
[2024-09-01 02:44] LABS: Resp Syncy Virus RNA Qual PCR NEGATIVE (Negative); SARS COV2 PCR INHOUSE NEGATIVE (Negative)
[2024-09-01 03:05] VITALS: BP 138/72; PULSE 80; RESP 18; TEMP 37.8; O2SAT 94
--- NOTE | 2024-09-01 05:08 | PC.NURSE ---
energy assistant to [facility] and found the patient ambulating to the main ER doors with an even and steady gait. The pt was noted to push on the doors in an attempt to open them. When this RN approached to inquire about providing help the patient stated Oh yea I'm not waiting any longer. I've been here for 4 hours, i thought it was only going to take a couple hours . This RN apologized for the inconvenience and encouraged the patient to stay which he declined. The pt states that he will either come back and/or follow up with his PCP.
== END 2024-09-01 05:05 | disposition left against medical advice (07) ==
PROVIDERS: Emergency Provider Emergency Medicine; PCP Internal Medicine
DX: R05.9 Cough, unspecified (principal); R50.9 Fever, unspecified; M79.10 Myalgia, unspecified site; R06.02 Shortness of breath; Z03.818 Encounter for observation for suspected exposure to other biological agents ruled out
CPT/HCPCS: 71046; 80053; 85025; 87637; 87651; 93005; 99284; 99291

== ENCOUNTER → 2024-09-01 02:08 | Outpatient (BNV) | payer MEDICARE, SELFPAY | PROVIDERS: Emergency Provider Emergency Medicine; PCP Internal Medicine; Visit Provider Internal Medicine | DX: R94.31 Abnormal electrocardiogram [ECG] [EKG] (principal); R06.02 Shortness of breath | CPT/HCPCS: 93010 ==

== ENCOUNTER 2024-09-03 15:17 | Outpatient (AMB) | payer MEDICARE, SELFPAY ==
--- OUTSIDE RECORDS SUMMARY | 2024-09-03 15:19 | XMS_ITS | Patient Health Record ---
Author Organization [facility] Address [address] [place] [id number] Care Team Providers Care Curriculum Coach Name Role Phone Ricardo Gonsalves [phone] Reason For Referral No Information Plan Of Treatment No Information
--- OUTSIDE RECORDS SUMMARY | 2024-09-03 15:19 | XMS_ITS | Encounter Summary ---
Author Organization [facility] Address [address] [place] [address] Care Team Providers Care Divisional Merchandising Manager Name Role Phone Yonatan Mendenhall MD Primary Care Provider [phone] [facility], Pcp Primary Care Provider Unavailabl e Encounter Details Date Type Department Care Team Description 04/20/2012 Orders Only Adult Medicine [address] [phone] Yonatan Mendenhall MD [address] [place] [address] [phone] Social History Tobacco Use Types Packs/Day Years Used Date Smoking Tobacco: Former Smokeless Tobacco: Former Quit: 04/16/1978 Alcohol Use Standard Drinks/Week Comments No 0 (1 standard drink = 0.6 oz pur e alcohol) no alcohol for 4 months Sex Assigned at Date Recorded Not on file documented as of this encounter Plan of Treatment Not on file documented as of this encounter Visit Diagnoses Not on filedocumented in this encounter Care Teams Divisional Merchandising Manager Relationship Specialty Start Date End Date Yonatan Mendenhall MD [address] [place] [address] [phone] PCP - General Internal Medicine 02/12/11 01/14/16 Ubaldo Waggoner [address] [place] [id number] PCP - General Internal Medicine 01/15/16 documented as of this encounter
--- NOTE | 2024-09-03 15:23 | A.OFFPC_ITS ---
Vital Signs 3 09/03/24 15:24 Height 5 ft 10 in Weight 188 lb 2 oz BMI 27.0 BP 120/64 Blood Pressure Location Lt brachial Position Sitting Pulse 88 Pulse Source Pulse Oximeter Temp 97.1 F Temp Source Temporal Artery Scan Pulse Oximetry (%) 92 Oxygen Delivery Method Room Air Intake Visit Reasons: bronchitis Allergies Penicillins (PCN) Allergy (Intermediate, Verified 09/03/24 15:28) RASH Sulfa (Sulfonamide Antibiotics) (SULFA (SULFONAMIDE ANTIBIOTICS)) Allergy (Intermediate, Verified 09/03/24 15:28) RASH ragweed and dust Allergy (Intermediate, Uncoded 09/03/24 15:28) Sneezing Tobacco use date assessed: 09/03/24 Fall risk assessment: No Falls in past year Last assessed Fall Risk: 09/03/24 Dental Screening Dental Screen Date: 09/03/24 Did you have a dental visit in the last 12 months?: Yes Did you have a dental problem in the last 6 months where you did not have access to dental care?: No Was dental information given to patient?: Patient has dentist HPI bronchitis 2 HPI0 Details sore throat , WINN started 5 days ago, productive cough , , no chills, no v, no d PFSH Medical History Arthritis Overweight (BMI 25.0-29.9) GONZALEZ (nonalcoholic steatohepatitis) GERD without esophagitis COPD (chronic obstructive pulmonary disease) Pure hypercholesterolemia Type 2 diabetes mellitus without complication, without long-term current use of insulin Surgical History H/O colonoscopy (~01/09/21) Family History Father Lung cancer Smoker Mother Congestive heart failure Social History Housing: House Are you a primary resident care spec to a significant other at home: No Do you presently have visiting nurse or other home services: No Alcohol intake: former Patient Tobacco Use Status: Former Tobacco user Tobacco use type: Cigarette e-Cigarette/Vaping Use: Never Used Second Hand Smoke Exposure: Yes service: No Current occupational status: retired Cognitive needs: No Hearing needs: No Vision needs: No Questionnaire PHQ-9 Over the last 2 weeks, how often have you been bothered by any of the following problems? 1. Little interest or pleasure in doing things: not at all 2. Feeling down, depressed, or hopeless: not at all 3. Trouble falling or staying asleep, or sleeping too much: not at all 4. Feeling tired or having little energy: not at all 5. Poor appetite or overeating: not at all 6. Feeling bad about yourself - or that you are a failure or have let yourself or your family down: not at all 7. Trouble concentrating on things, such as reading the newspaper or watching television: not at all 8. Moving or speaking so slowly that other people could have noticed. Or the opposite - being so fidgety or restless that you have been moving around a lot more than usual: not at all 9. Thoughts that you would be better off or of hurting yourself in some way: not at all Total score: 0 Depression Screening Interpretation: Negative Depression Screening Done: Yes Source: Developed by Drs. Ricardo Nelson, Lucinda Matamoors, Kareem Timmons and colleagues, with an educational luz maria from [employer]. Thrive Questionnaire Date Thrive assessed: 05/11/24 I am a: Patient What is your living situation today?: I have a steady place to live Within the past 12 months, did the food you bought not last and you didn't have the money to get more?: I choose not to answer this question Within the past 12 months, did you worry whether your food would run out before you got money to buy more?: I choose not to answer this question Do you have trouble paying for medicines?: I choose not to answer this question Do you have trouble getting transportation to medical appointments?: I choose not to answer this question Do you have trouble paying your heating and electricity bill?: I choose not to answer this question Do you have trouble taking care of your child, family member or friend?: I choose not to answer this question Do you have trouble with day-to-day activities such as bathing, preparing meals, shopping, managing finances, etc.?: No Are you currently unemployed and looking for a job?: I choose not to answer this question Are you interested in more education?: No Please select the resources that you would like help with: None Currently or been in a relationship where the following occur: No concerns reported THRIVE Score: 0 AUDIT C Alcohol Use Questionnaire (AUDIT-C) 1. How often do you have a drink containing alcohol?: Monthly or less 2. How many drinks containing alcohol do you have on a typical day when you are drinking?: 1 or 2 3. How often do you have six or more drinks on one occasion?: Never Total Score: 1 Score Reviewed/Action Taken: Yes JOHN-7 AMB Questionnaire JOHN-7 Date JOHN - 7 assessed: 05/11/24 Feeling nervous, anxious, or on edge: 0 = Not at all Not being able to stop or control worryin = Not at all Worrying too much about different things: 0 = Not at all Trouble relaxin = Not at all Being so restless that it is hard to sit still: 0 = Not at all Becoming easily annoyed or irritable: 0 = Not at all Feeling afraid as if something awful might happen: 0 = Not at all Total JOHN-7 score (0-4 normal; 5-9 mild; 10-14 moderate; 15-21 severe): 0 Source: Developed by Drs. Ricardo Nelson, Lucinda Matamoros, Kareem Timmons and colleagues, with an educational luz maria from [employer]. Physical exam (Primary Care) Vital Signs: Last Vital Signs Temp 97.1 F 09/03/24 15:24 Pulse 88 09/03/24 15:24 BP 120/64 09/03/24 15:24 Pulse Ox 92 09/03/24 15:24 Oxygen Delivery Method Room Air 09/03/24 15:24 BMI result Body Mass Index 27.0 Tobacco/Smoking Status: Tobacco use Status Tobacco use date assessed 09/03/24 09/03/24 15:29 Patient Tobacco Use Status Former Tobacco user 09/03/24 15:24 Tobacco use type Cigarette 09/03/24 15:24 e-Cigarette/Vaping Use Never Used 09/03/24 15:24 PHQ-9: PHQ-9 Score PHQ-9: Total score 0 09/03/24 15:48 Depression Screening Interpretation: Negative Thrive Assessment: Date of Thrive Assessment Date Thrive assessed 05/11/24 09/03/24 15:24 Currently or been in a relationship where the following occur: No concerns reported Const General: alert; No acute distress Eyes Conjunctivae: conjunctivae normal Resp Other: Mild wheezing noted on the right lower lung field with rhonchi Cardio Rate: regular rate Rhythm: regular rhythm GI Inspection: Yes normal to inspection Skin Full body images: 2 1. R axilla red erythematous area 6 by 6 inch rash with satellite lesion around Extrem General: Yes normal to inspection and No edema Results AMB Hemoglobin A1c 2 AMB Hemoglobin A1c 5.6 % Last Edit by Lenore Velasquez CMA on 09/03/24 15:33 Results Reviewed Results Reviewed: Laboratory Last Values Hgb A1c (Clinic) 5.6 % (4.0-6.0) 09/03/24 15:31 Coding Level of Care Code Est Pt Level 4 (43367) Diagnoses Type 2 diabetes mellitus without complication, without long-term current use of insulin E11.9 Overweight (BMI 25.0-29.9) E66.3 GERD without esophagitis K21.9 Chronic obstructive pulmonary disease, unspecified COPD type J44.9 COPD type: unspecified COPD Pure hypercholesterolemia E78.00 COPD (chronic obstructive pulmonary disease) with acute bronchitis J44.0; J20.9 Tinea corporis B35.4 Assessment & Plan Assessment & Plan (1) Type 2 diabetes mellitus without complication, without long-term current use of insulin: Comment: taking metformin QAM=glucose usually 82-103 Code(s): E11.9 - Type 2 diabetes mellitus without complications Category: Medical Plan: Decrease the amount of carbohydrate intake, pasta, bread, rice and potatoes are all sugar and that is aside from all the sweet stuff, remember that fruits are good but they are Sweet also. Hemoglobin A1c goal of less than 7.0. Patient on metformin 500 mg once a day (2) Overweight (BMI 25.0-29.9): Code(s): E66.3 - Overweight Category: Medical Plan: Continue with diet and exercise (3) GERD without esophagitis: Code(s): K21.9 - Gastro-esophageal reflux disease without esophagitis Category: Medical Plan: Avoid the foods that causes that usually spicy foods, tomato products, juices, coffee, soda and foods that your sensitive to. After eating do not lie down, allow 3-4 hours before in lie down. And keep the head of bed above 30 degrees to avoid the acid from going up. (4) COPD (chronic obstructive pulmonary disease): Comment: mild per patient-does not use inhalers or oxygen Code(s): J44.9 - Chronic obstructive pulmonary disease, unspecified Category: Medical Qualifiers: COPD type: unspecified COPD Qualified Code(s): J44.9 - Chronic obstructive pulmonary disease, unspecified Plan: Patient on no inhaler (5) Pure hypercholesterolemia: Code(s): E78.00 - Pure hypercholesterolemia, unspecified Category: Medical Plan: Avoid fried foods, chicken skin, eggs, butter margarine, pastries and meat. Be it pork or beef they have a lot of cholesterol on pravastatin 40 mg once a day and Zetia 10 mg once a LDL goal of less than 100 and triglyceride of less than 150 (6) COPD (chronic obstructive pulmonary disease) with acute bronchitis: Code(s): J44.0 - Chronic obstructive pulmonary disease with (acute) lower respiratory infection; J20.9 - Acute bronchitis, unspecified Category: Medical (7) Tinea corporis: Code(s): B35.4 - Tinea corporis Category: Medical Plan: History of Present Illness The patient is a 74-year-old male presenting with an acute problem. He has a history of diabetes mellitus, chronic obstructive pulmonary disease (COPD), hypercholesterolemia, and gastroesophageal reflux disease (GERD). The patient was recently in the emergency room, and blood work revealed a normal blood count with mild thrombocytosis. Electrolytes were normal, renal function was 1.01, and blood glucose was elevated at 138 mg/dL with a normal hemoglobin A1c of 5.6%. A chest x-ray showed no acute findings, and tests for influenza, RSV, and COVID-19 were negative. The patient is currently on metformin 500 mg once daily for diabetes management, with a hemoglobin A1c goal of less than 7.0%. He is advised to continue with diet and exercise. For hypercholesterolemia, the patient is on pravastatin 40 mg once daily, with an LDL cholesterol goal of less than 100 mg/dL and triglycerides of less than 150 mg/dL. He is also taking anxuria 10 mg once daily. The patient reports a rash that worsens with humidity and sweating, which is exacerbated by his diabetes. He has a history of allergy to penicillin and sulfa drugs. Health Maintenance Social History Review of Systems - Respiratory: Reports cough, denies dyspnea. - Dermatological: Reports rash exacerbated by humidity and sweating. Physical Exam Results - Labs: Normal blood count with mild thrombocytosis, normal electrolytes, renal function at 1.01, elevated blood glucose at 138 mg/dL, normal hemoglobin A1c at 5.6%. - Imaging: Chest x-ray with no acute findings. - Tests: Negative for influenza, RSV, and COVID-19. Plan The patient will continue with metformin 500 mg once daily to manage diabetes, aiming for a hemoglobin A1c goal of less than 7.0%. Diet and exercise are recommended to support diabetes management. For hypercholesterolemia, the patient will remain on pravastatin 40 mg once daily, targeting an LDL cholesterol level of less than 100 mg/dL and triglycerides of less than 150 mg/dL. Anxuria 10 mg once daily will be continued. The patient will receive an inhaler to assist with breathing, particularly during episodes of coughing. An antibiotic regimen is prescribed, starting with two tablets on the first day followed by one tablet daily for four days. A cream is prescribed to be applied twice daily for one month to manage the rash. The patient is advised to increase water intake to at least four bottles a day to aid in hydration and support overall health. A medication to suppress nighttime cough will be provided to improve sleep quality. Patient was informed and verbally consented to the use of an ambient scribe for clinic note documentation during this visit. Discussion Notes I discussed with the patient the management of his diabetes, emphasizing the importance of maintaining a hemoglobin A1c below 7.0% and continuing metformin therapy. We also reviewed the cholesterol management plan, including the continuation of pravastatin and anxuria. I explained the use of the inhaler for respiratory support and the antibiotic regimen for infection control. The patient was advised to apply the prescribed cream for the rash and to increase water intake to improve hydration. A nighttime cough suppressant was recommended to enhance sleep quality. Patient Instructions - Continue taking metformin 500 mg once daily. - Maintain diet and exercise regimen. - Continue pravastatin 40 mg once daily. - Use the inhaler as needed for breathing difficulties. - Take the prescribed antibiotic as directed. - Apply the cream twice daily for one month. - Increase water intake to at least four bottles a day. - Use nighttime cough suppressant as needed. Plan History of Present Illness The patient is a 74-year-old male presenting with an acute problem. He has a history of diabetes mellitus, chronic obstructive pulmonary disease (COPD), hypercholesterolemia, and gastroesophageal reflux disease (GERD). The patient was recently in the emergency room, and blood work revealed a normal blood count with mild thrombocytosis. Electrolytes were normal, renal function was 1.01, and blood glucose was elevated at 138 mg/dL with a normal hemoglobin A1c of 5.6%. A chest x-ray showed no acute findings, and tests for influenza, RSV, and COVID-19 were negative. The patient is currently on metformin 500 mg once daily for diabetes management, with a hemoglobin A1c goal of less than 7.0%. He is advised to continue with diet and exercise. For hypercholesterolemia, the patient is on pravastatin 40 mg once daily, with an LDL cholesterol goal of less than 100 mg/dL and triglycerides of less than 150 mg/dL. He is also taking anxuria 10 mg once daily. The patient reports a rash that worsens with humidity and sweating, which is exacerbated by his diabetes. He has a history of allergy to penicillin and sulfa drugs. Health Maintenance Social History Review of Systems - Respiratory: Reports cough, denies dyspnea. - Dermatological: Reports rash exacerbated by humidity and sweating. Physical Exam Results - Labs: Normal blood count with mild thrombocytosis, normal electrolytes, renal function at 1.01, elevated blood glucose at 138 mg/dL, normal hemoglobin A1c at 5.6%. - Imaging: Chest x-ray with no acute findings. - Tests: Negative for influenza, RSV, and COVID-19. Plan The patient will continue with metformin 500 mg once daily to manage diabetes, aiming for a hemoglobin A1c goal of less than 7.0%. Diet and exercise are recommended to support diabetes management. For hypercholesterolemia, the patient will remain on pravastatin 40 mg once daily, targeting an LDL cholesterol level of less than 100 mg/dL and triglycerides of less than 150 mg/dL. Anxuria 10 mg once daily will be continued. The patient will receive an inhaler to assist with breathing, particularly during episodes of coughing. An antibiotic regimen is prescribed, starting with two tablets on the first day followed by one tablet daily for four days. A cream is prescribed to be applied twice daily for one month to manage the rash. The patient is advised to increase water intake to at least four bottles a day to aid in hydration and support overall health. A medication to suppress nighttime cough will be provided to improve sleep quality. Patient was informed and verbally consented to the use of an ambient scribe for clinic note documentation during this visit. Discussion Notes I discussed with the patient the management of his diabetes, emphasizing the importance of maintaining a hemoglobin A1c below 7.0% and continuing metformin therapy. We also reviewed the cholesterol management plan, including the continuation of pravastatin and anxuria. I explained the use of the inhaler for respiratory support and the antibiotic regimen for infection control. The patient was advised to apply the prescribed cream for the rash and to increase water intake to improve hydration. A nighttime cough suppressant was recommended to enhance sleep quality. Patient Instructions - Continue taking metformin 500 mg once daily. - Maintain diet and exercise regimen. - Continue pravastatin 40 mg once daily. - Use the inhaler as needed for breathing difficulties. - Take the prescribed antibiotic as directed. - Apply the cream twice daily for one month. - Increase water intake to at least four bottles a day. - Use nighttime cough suppressant as needed. Orders: Orders 2 AMB Hemoglobin A1c Today Z13.9 - Encounter for screening, unspecified Medications: New 2 clotrimazole 1% 1 appl topical BID 45 grams 1RF 4 weeks B35.4 - Tinea corporis albuterol sulfate 90 mcg/actuation (Proair Digihaler) 2 inhalations inhalation Q4-6H PRN 1 ea 0RF shortness of breath or wheezing J20.9 - Acute bronchitis, unspecified, J44.0 - Chronic obstructive pulmonary disease with (acute) lower respiratory infection azithromycin (Zithromax) For 250 mg dose pack: take 500 mg today (day 1), then 250 mg for 4 days (days 2-5) PO 6 tabs 0RF J20.9 - Acute bronchitis, unspecified, J44.0 - Chronic obstructive pulmonary disease with (acute) lower respiratory infection benzonatate 200 mg PO .QD PRN 14 caps 0RF cough J20.9 - Acute bronchitis, unspecified, J44.0 - Chronic obstructive pulmonary disease with (acute) lower respiratory infection
[2024-09-03 15:24] VITALS: BP 120/64; PULSE 88; TEMP 36.2; O2SAT 92; BMI 27.0
== END 2024-09-03 16:01 | disposition home or self-care (01) ==
LOC: HO.HMCH 15:18
PROVIDERS: PCP Internal Medicine; Visit Provider Internal Medicine
DX: E11.9 Type 2 diabetes mellitus without complications (principal); J44.9 Chronic obstructive pulmonary disease, unspecified; J44.0 Chronic obstructive pulmonary disease with (acute) lower respiratory infection; E66.3 Overweight; Z68.27 Body mass index [BMI] 27.0-27.9, adult; K21.9 Gastro-esophageal reflux disease without esophagitis; E78.00 Pure hypercholesterolemia, unspecified; J20.9 Acute bronchitis, unspecified; B35.4 Tinea corporis

== ENCOUNTER → 2024-09-03 15:17 | Outpatient (BNVA) | payer MEDICARE, SELFPAY | PROVIDERS: PCP Internal Medicine; Visit Provider Internal Medicine | DX: E11.9 Type 2 diabetes mellitus without complications (principal); E66.3 Overweight; K21.9 Gastro-esophageal reflux disease without esophagitis; J44.0 Chronic obstructive pulmonary disease with (acute) lower respiratory infection; J20.9 Acute bronchitis, unspecified; E78.00 Pure hypercholesterolemia, unspecified | CPT/HCPCS: 83036; 99212 ==

== ENCOUNTER 2024-09-16 06:22 | Outpatient (REF) | payer MEDICARE, SELFPAY ==
--- OUTSIDE RECORDS SUMMARY | 2024-09-16 06:25 | XMS_ITS | Encounter Summary ---
Author Organization [facility] Address [address] [place] [address] Care Team Providers Care Science Liaison Name Role Phone Yonatan Mendenhall MD Primary Care Provider [phone] [facility]ly [facility], [facility], Pcp Primary Care Provider Unavailabl e Encounter Details Date Type Department Care Team Description 04/20/2012 Orders Only Adult Medicine [address] [id number] Yonatan Mendenhall MD [address] [place] [address] [id number] Social History Tobacco Use Types Packs/Day Years [...] on filedocumented in this encounter Care Teams Science Liaison Relationship Specialty Start Date End Date Yonatan Mendenhall MD [address] [place] [address] [id number] PCP - General Internal Medicine 02/12/11 01/14/16 Ubaldo Waggoner [address] [place] [id number] PCP - General Internal Medicine 01/15/16 documented as of this encounter
--- OUTSIDE RECORDS SUMMARY | 2024-09-16 06:25 | XMS_ITS | Patient Health Record ---
Author Organization [facility] Address [address] [place] [id number] Care Team Providers Care Electronic Equipment Maint Tech Name Role Phone Ricardo Gonsalves [phone] Reason For Referral No Information Plan Of Treatment No Information
[2024-09-16 06:44] LABS: MANUAL DIFF FLAG NO
[2024-09-16 07:15] LABS: Hematocrit 38.9 % (42.0-52.0); Hemoglobin 13.5 g/dl (14.0-18.0); Imm Gran Abs Auto 0.04 X10*3/uL (0.00-0.03); Imm Gran Pct Auto 0.7 % (0.0-0.4); Lymphocytes Absolute Auto 1.5 X10*3/uL (1.2-4.9); Mean Corpuscular HGB Conc 34.7 g/dl (31.0-36.0); Mean Corpuscular Hemoglobin 31.0 pg (27.0-33.0); Mean Corpuscular Volume 89.4 fL (80.0-98.0); NRBC Abs Auto 0.030 X10*3/uL (0.0-0.012); NRBC Pct Auto 0.5 /100WBC (0.0-0.2); Platelet Count 468 X10*3/uL (160-400); Red Blood Count 4.35 X10*6/uL (4.60-5.80); White Blood Count 5.9 X10*3/uL (4.8-10.8)
[2024-09-16 07:22] LABS: Alanine Aminotransferase 32 U/L (0-40); Albumin Level 3.8 g/dL (3.5-5.0); Alkaline Phosphatase 115 U/L (39-117); Anion Gap 15 (12-20); Aspartate Amino Transferase 36 U/L (5-37); Blood Urea Nitrogen 22 mg/dL (9-16); Calcium 8.9 mg/dL (8.4-10.2); Carbon Dioxide 21 mmol/L (22-29); Chloride 110 mmol/L (96-108); Cholesterol 144 mg/dL (<200); Estimated Glomerular Filt Rate > 60; HDL Cholesterol 31 mg/dL (>40); Potassium 4.1 mmol/L (3.3-5.1); Sodium 142 mmol/L (135-145); Total Protein 6.6 g/dL (6.5-8.0); Triglycerides 103 mg/dL (<150)
[2024-09-16 07:27] LABS: Hemoglobin A1C 148.3291 umol/L; Total Hemoglobin (HGBA1C) 3573.3290 umol/L
[2024-09-16 07:51] LABS: Appearance Urine Clear; Glucose Urine UA Negative (Negative); PH 6.0 (5.0-9.0); Specific Gravity - Urine 1.015 (1.005-1.025)
== END 2024-09-16 06:23 | disposition home or self-care (01) ==
LOC: HO.LAB 06:22
PROVIDERS: PCP Internal Medicine; Visit Provider Internal Medicine
DX: E11.9 Type 2 diabetes mellitus without complications (principal); E78.00 Pure hypercholesterolemia, unspecified; E55.9 Vitamin D deficiency, unspecified; D64.9 Anemia, unspecified; R30.0 Dysuria
CPT/HCPCS: 36415; 80053; 80061; 81003; 82306; 83036; 84443; 85025

== ENCOUNTER 2024-09-21 09:37 | Outpatient (AMB) | payer MEDICARE, SELFPAY ==
[2024-09-21 09:49] VITALS: BP 130/82; PULSE 77; O2SAT 96; BMI 27.3
--- NOTE | 2024-09-21 09:49 | A.OFFPC_ITS ---
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 Required: No Accompanied by: Self / Same As Patient Allergies Penicillins (PCN) Allergy (Intermediate, Verified 09/21/24 10:21) RASH Sulfa (Sulfonamide Antibiotics) (SULFA (SULFONAMIDE ANTIBIOTICS)) Allergy (Intermediate, Verified 09/21/24 10:21) RASH ragweed and dust Allergy (Intermediate, Uncoded 09/21/24 10:21) Sneezing Medication List - Last Reconciled 09/21/24 by Craig Vega MD albuterol sulfate 90 mcg/actuation (Proair Digihaler) 2 inhalations inhalation Q4-6H PRN blood sugar diagnostic (OneTouch Verio test strips) 1 strip miscellaneous DAILY cholecalciferol (vitamin D3) (Vitamin D3) 25 mcg PO DAILY clotrimazole 1% 1 appl topical BID 4 weeks ezetimibe 10 mg PO DAILY 90 days meloxicam 7.5 mg PO DAILY PRN 30 days metformin 500 mg PO DAILY 90 days omeprazole 20 mg PO QAM pravastatin 40 mg PO DAILY 90 days Tobacco use date assessed: 09/21/24 Fall risk assessment: No Falls in past year Last assessed Fall Risk: 09/21/24 Dental Screening Dental Screen Date: 09/21/24 Did you have a dental visit in the last 12 months?: Yes Did you have a dental problem in the last 6 months where you did not have access to dental care?: No Was dental information given to patient?: Patient has dentist HPI 4 Months f/u HPI Details Patient comes in today for his follow-up visit States that he feels okay He denies any headaches or dizziness Denies any chest pains, no shortness of breath No nausea / vomiting, no abdominal pain No change in bowel habits noted Needs his Metformin Rx refilled He had his follow-up labs done last week - to discuss his results [facility] Medical History Arthritis Overweight (BMI 25.0-29.9) GONZALEZ (nonalcoholic steatohepatitis) GERD without esophagitis COPD (chronic obstructive pulmonary disease) Pure hypercholesterolemia Type 2 diabetes mellitus without complication, without long-term current use of insulin Surgical History H/O colonoscopy (~01/09/21) Family History Father Lung cancer Smoker Mother Congestive heart failure Social History Housing: House Are you a primary healthcare administration internship to a significant other at home: No Do you presently have visiting nurse or other home services: No Alcohol intake: former Patient Tobacco Use Status: Former Tobacco user Tobacco use type: Cigarette e-Cigarette/Vaping Use: Never Used Second Hand Smoke Exposure: Yes service: No Current occupational status: retired Cognitive needs: No Hearing needs: No Vision needs: No Questionnaire PHQ-9 Over the last 2 weeks, how often have you been bothered by any of the following problems? 1. Little interest or pleasure in doing things: not at all 2. Feeling down, depressed, or hopeless: not at all 3. Trouble falling or staying asleep, or sleeping too much: not at all 4. Feeling tired or having little energy: not at all 5. Poor appetite or overeating: not at all 6. Feeling bad about yourself - or that you are a failure or have let yourself or your family down: not at all 7. Trouble concentrating on things, such as reading the newspaper or watching television: not at all 8. Moving or speaking so slowly that other people could have noticed. Or the opposite - being so fidgety or restless that you have been moving around a lot more than usual: not at all 9. Thoughts that you would be better off or of hurting yourself in some way: not at all Total score: 0 Depression Screening Interpretation: Negative Depression Screening Done: Yes 70814 - PHQ-9 Billing: Yes Source: Developed by Drs. Ricardo Nelson, Lucinda Matamoros, Kareem Timmons and colleagues, with an educational luz maria from [employer]. Thrive Questionnaire Date Thrive assessed: 09/21/24 I am a: Patient What is your living situation today?: I have a steady place to live Within the past 12 months, did the food you bought not last and you didn't have the money to get more?: Never true Within the past 12 months, did you worry whether your food would run out before you got money to buy more?: Never true Do you have trouble paying for medicines?: No Do you have trouble getting transportation to medical appointments?: No Do you have trouble paying your heating and electricity bill?: No Do you have trouble taking care of your child, family member or friend?: No Do you have trouble with day-to-day activities such as bathing, preparing meals, shopping, managing finances, etc.?: No Are you currently unemployed and looking for a job?: No Are you interested in more education?: No Please select the resources that you would like help with: None Currently or been in a relationship where the following occur: No concerns reported THRIVE Score: 0 AUDIT C Alcohol Use Questionnaire (AUDIT-C) 1. How often do you have a drink containing alcohol?: 2-4 times a month 2. How many drinks containing alcohol do you have on a typical day when you are drinking?: 1 or 2 3. How often do you have six or more drinks on one occasion?: Never Total Score: 2 Score Reviewed/Action Taken: Yes JOHN-7 AMB Questionnaire JOHN-7 Date JOHN - 7 assessed: 09/21/24 Feeling nervous, anxious, or on edge: 0 = Not at all Not being able to stop or control worryin = Not at all Worrying too much about different things: 0 = Not at all Trouble relaxin = Not at all Being so restless that it is hard to sit still: 0 = Not at all Becoming easily annoyed or irritable: 0 = Not at all Feeling afraid as if something awful might happen: 0 = Not at all Total JOHN-7 score (0-4 normal; 5-9 mild; 10-14 moderate; 15-21 severe): 0 Source: Developed by Drs. Ricardo Nelson, Lucinda Matamoros, Kareem Timmons and colleagues, with an educational luz maria from [employer]. Review of Systems Const Denies chills, Denies fatigue, Denies fever(s) and Denies headache(s) ENT Denies dysphagia, Denies dizziness, Denies otalgia, Denies headache(s), Denies neck pain, Denies odynophagia and Denies sore throat Card Denies chest pain, Denies irregular heart rhythm, Denies palpitations and Denies dyspnea Resp Denies chest congestion, Denies cough and Denies dyspnea GI Denies abdominal pain, Denies constipation, Denies dysphagia, Denies heartburn, Denies diarrhea, Denies nausea, Denies odynophagia and Denies vomiting Denies difficulty urinating, Denies dysuria and Denies urinary frequency Musc Denies back pain, Denies arthralgias and Denies neck pain Skin/Breast Denies rash Neuro Denies dizziness, Denies headache(s) and Denies paresthesias Endo Denies fatigue and Denies palpitations Physical exam (Primary Care) Vital Signs: Last Vital Signs Pulse 77 09/21/24 09:49 BP 130/82 09/21/24 09:49 Pulse Ox 96 09/21/24 09:49 Oxygen Delivery Method Room Air 09/21/24 09:49 BMI result Body Mass Index 27.3 Tobacco/Smoking Status: Tobacco use Status Tobacco use date assessed 09/21/24 09/21/24 09:54 Patient Tobacco Use Status Former Tobacco user 09/21/24 09:54 Tobacco use type Cigarette 09/21/24 09:54 e-Cigarette/Vaping Use Never Used 09/21/24 09:54 PHQ-9: PHQ-9 Score PHQ-9: Total score 0 09/21/24 09:54 Depression Screening Interpretation: Negative Thrive Assessment: Date of Thrive Assessment Date Thrive assessed 09/21/24 09/21/24 09:54 Currently or been in a relationship where the following occur: No concerns reported Const General: no acute distress and alert HENMT Ears: TM's normal bilaterally and EAC's normal Throat: Yes posterior oropharynx normal and Yes tonsils normal (no TP congestion) Neck Neck: Yes supple and No lymphadenopathy Thyroid: Thyroid normal Resp Auscultation: clear to auscultation bilaterally, no rales and no wheezes Cardio Rate: regular rate Rhythm: regular rhythm Heart sounds: no murmurs GI Palpation (GI): Soft to palpation and nontender Auscultation: normal bowel sounds General: Yes no CVA tenderness Back/Spine/Pelvis Back: no CVA tenderness Thoracic/Lumbar Spine: No lumbar spinal tenderness Skin Rashes: no rashes Extrem General: Yes no clubbing, cyanosis or edema Results Reviewed Results Reviewed: Laboratory Tests 09/16/24 09/16/24 06:42 06:43 WBC 5.9 Hgb 13.5 L Hct 38.9 L Plt Count 468 H D Sodium 142 Potassium 4.1 Creatinine 1.05 Estimated GFR > 60 Fasting Glucose 106 H Hemoglobin A1c % 5.9 Calcium 8.9 AST 36 ALT 32 Triglycerides 103 Cholesterol 144 LDL Cholesterol, Calc 93 HDL Cholesterol 31 L 25-OH Vitamin D Total 50.8 TSH 2.06 Ur Specific [place] 1.015 Urine Protein Negative Urine Glucose (UA) Negative Urine Blood Negative Urine Nitrite Negative Ur Leukocyte Esterase Negative Coding Level of Care Code Est Pt Level 4 (51024) Complex EM visit Add On G2211 Diagnoses Pure hypercholesterolemia E78.00 Type 2 diabetes mellitus without complication, without long-term current use of insulin E11.9 Chronic obstructive pulmonary disease, unspecified COPD type J44.9 COPD type: unspecified COPD GERD without esophagitis K21.9 GONZALEZ (nonalcoholic steatohepatitis) K75.81 Arthritis of finger of both hands M19.041; M19.042 Overweight (BMI 25.0-29.9) E66.3 Additional Codes PHQ-9 - 24797 - PHQ-9 Billing: Yes ([id number]) Assessment & Plan Assessment & Plan (1) Pure hypercholesterolemia: Code(s): E78.00 - Pure hypercholesterolemia, unspecified Category: Medical Plan: Results of his labs done last week reviewed and discussed with patient - have advised patient that his fasting lipids remain well controlled Reinforced low cholesterol diet Continue Pravastatin 40 mg QD and Ezetimibe 10 mg QD Will recheck his labs and fasting lipids in 4 months for follow-up (2) Type 2 diabetes mellitus without complication, without long-term current use of insulin: Comment: taking metformin QAM=glucose usually 82-103 Code(s): E11.9 - Type 2 diabetes mellitus without complications Category: Medical Plan: His HgbA1c was at 5.9% on his labs done last week (was previously at 5.7% a few months ago) - goal is < 7.0% Reinforced diabetic diet Continue Metformin 500 mg QD - Rx refilled (3) COPD (chronic obstructive pulmonary disease): Comment: mild per patient-does not use inhalers or oxygen Code(s): J44.9 - Chronic obstructive pulmonary disease, unspecified Category: Medical Qualifiers: COPD type: unspecified COPD Qualified Code(s): J44.9 - Chronic obstructive pulmonary disease, unspecified Plan: Controlled Continue Ventolin HFA 2 puffs 4 times a day only as needed - states that he has not had to use his inhaler lately (4) GERD without esophagitis: Code(s): K21.9 - Gastro-esophageal reflux disease without esophagitis Category: Medical Plan: Dietary restrictions reinforced Continue Omeprazole 20 mg QD (5) GONZALEZ (nonalcoholic steatohepatitis): Code(s): K75.81 - Nonalcoholic steatohepatitis (GONZALEZ) Category: Medical Plan: Have advised patient that his LFTs are now normal on his recent labs - were likely related to his weight Reinforced again avoidance of alcohol and Acetaminophen-containing medications Will continue to monitor his LFTs regularly (6) Arthritis of finger of both hands: Code(s): M19.041 - Primary osteoarthritis, right hand; M19.042 - Primary osteoarthritis, left hand Category: Medical Plan: Xrays of both hands done last year revealed (+) some erosive changes in the DIP joints suggestive of psoriatic arthritis Patient denies any skin lesions or rash He was referred previously to rheumatology for further evaluation and management but it appears that he was never scheduled or seen States that his joint pains have improved a lot with Meloxicam and he has not needed to take this lately - takes it only as needed As he has not had any significant issues with joint pains, does not wish to see rheumatology at this time (7) Overweight (BMI 25.0-29.9): Code(s): E66.3 - Overweight Category: Medical Plan: Reinforced diet/exercise as tolerated/lose weight Plan Follow up in 4 months Orders: Orders Hemoglobin A1c 4 Months E11.9 - Type 2 diabetes mellitus without complications Complete Blood Count Auto Diff 4 Months D64.9 - Anemia, unspecified TSH reflex Free T4 4 Months E78.00 - Pure hypercholesterolemia, unspecified UA CC w/rflx Micro + Cult 4 Months R30.0 - Dysuria Vitamin D 25-OH Total 4 Months E55.9 - Vitamin D deficiency, unspecified Comprehensive [place]. Panel Fast 4 Months E78.00 - Pure hypercholesterolemia, unspecified Lipid Panel 4 Months E78.00 - Pure hypercholesterolemia, unspecified Microalbumin, Random (w Creat) 4 Months E11.9 - Type 2 diabetes mellitus without complications Medications: Refilled metformin 500 mg PO DAILY 90 tabs 3RF 90 days
--- OUTSIDE RECORDS SUMMARY | 2024-09-21 10:03 | XMS_ITS | Encounter Summary ---
Author Organization [facility] Address [address] [place] [address] Care Team Providers Care Virtualization Engineer Name Role Phone Yonatan Mendenhall MD Primary Care Provider [phone] [facility], Pcp Primary Care Provider Unavailabl e Encounter Details Date Type Department Care Team Description 04/20/2012 Orders Only Adult Medicine [address] [id number] Yonatan Mendenhall MD [address] [place] [address] [id number] Social History Tobacco Use Types Packs/Day Years [...] on filedocumented in this encounter Care Teams Virtualization Engineer Relationship Specialty Start Date End Date Yonatan Mendenhall MD [address] [place] [address] [id number] PCP - General Internal Medicine 02/12/11 01/14/16 Ubaldo Waggoner [address] [place] [id number] PCP - General Internal Medicine 01/15/16 documented as of this encounter
--- OUTSIDE RECORDS SUMMARY | 2024-09-21 10:03 | XMS_ITS | Patient Health Record ---
Author Organization [facility] Address [address] [place] [phone] Care Team Providers Care Operator Prefinish Name Role Phone Ricardo Gonsalves [phone] Reason For Referral No Information Plan Of Treatment No Information
== END 2024-09-21 10:26 | disposition home or self-care (01) ==
LOC: HO.HMCH 09:38
PROVIDERS: PCP Internal Medicine; Visit Provider Internal Medicine
DX: E78.00 Pure hypercholesterolemia, unspecified (principal); E11.9 Type 2 diabetes mellitus without complications; J44.9 Chronic obstructive pulmonary disease, unspecified; K21.9 Gastro-esophageal reflux disease without esophagitis; K75.81 Nonalcoholic steatohepatitis (NASH); M19.041 Primary osteoarthritis, right hand; M19.042 Primary osteoarthritis, left hand; E66.3 Overweight

== ENCOUNTER → 2024-09-21 09:37 | Outpatient (BNVA) | payer MEDICARE, SELFPAY | PROVIDERS: PCP Internal Medicine; Visit Provider Internal Medicine | DX: E78.00 Pure hypercholesterolemia, unspecified (principal); E11.9 Type 2 diabetes mellitus without complications; K21.9 Gastro-esophageal reflux disease without esophagitis; K75.81 Nonalcoholic steatohepatitis (NASH); M19.041 Primary osteoarthritis, right hand; M19.042 Primary osteoarthritis, left hand; E66.3 Overweight; Z68.27 Body mass index [BMI] 27.0-27.9, adult; Z71.3 Dietary counseling and surveillance; Z87.891 Personal history of nicotine dependence | CPT/HCPCS: 96127; 99212 ==

== ENCOUNTER 2025-01-03 06:07 | Outpatient (REF) | payer MEDICARE, SELFPAY ==
--- OUTSIDE RECORDS SUMMARY | 2025-01-03 06:10 | XMS_ITS | Patient Health Record ---
Author Organization [facility] Address [address] [place] [phone] Care Team Providers Care Calender Operator Helper Name Role Phone Ricardo Gonsalves [phone] Reason For Referral No Information Plan Of Treatment No Information
[2025-01-03 06:30] LABS: MANUAL DIFF FLAG NO
[2025-01-03 07:20] LABS: Hematocrit 45.1 % (42.0-52.0); Hemoglobin 15.3 g/dl (14.0-18.0); Imm Gran Abs Auto 0.03 X10*3/uL (0.00-0.03); Imm Gran Pct Auto 0.5 % (0.0-0.4); Lymphocytes Absolute Auto 1.6 X10*3/uL (1.2-4.9); Mean Corpuscular HGB Conc 33.9 g/dl (31.0-36.0); Mean Corpuscular Hemoglobin 30.8 pg (27.0-33.0); Mean Corpuscular Volume 90.7 fL (80.0-98.0); NRBC Abs Auto 0.000 X10*3/uL (0.0-0.012); NRBC Pct Auto 0.0 /100WBC (0.0-0.2); Platelet Count 180 X10*3/uL (160-400); Red Blood Count 4.97 X10*6/uL (4.60-5.80); White Blood Count 6.6 X10*3/uL (4.8-10.8)
[2025-01-03 07:43] LABS: Appearance Urine Clear; Glucose Urine UA Negative (Negative); PH 7.0 (5.0-9.0); Specific Gravity - Urine 1.010 (1.005-1.025)
[2025-01-03 07:48] LABS: Alanine Aminotransferase 38 U/L (0-40); Albumin Level 4.7 g/dL (3.5-5.0); Alkaline Phosphatase 77 U/L (39-117); Anion Gap 14 (12-20); Aspartate Amino Transferase 39 U/L (5-37); Blood Urea Nitrogen 20 mg/dL (9-16); Calcium 9.7 mg/dL (8.4-10.2); Carbon Dioxide 23 mmol/L (22-29); Chloride 107 mmol/L (96-108); Cholesterol 154 mg/dL (<200); Estimated Glomerular Filt Rate > 60; HDL Cholesterol 39 mg/dL (>40); Potassium 3.9 mmol/L (3.3-5.1); Sodium 140 mmol/L (135-145); Total Protein 7.1 g/dL (6.5-8.0); Triglycerides 155 mg/dL (<150)
== END 2025-01-03 06:08 | disposition home or self-care (01) ==
LOC: HO.LAB 06:07
PROVIDERS: PCP Internal Medicine; Visit Provider Internal Medicine
DX: E11.9 Type 2 diabetes mellitus without complications (principal); R30.0 Dysuria; E78.00 Pure hypercholesterolemia, unspecified; E55.9 Vitamin D deficiency, unspecified; D64.9 Anemia, unspecified
CPT/HCPCS: 36415; 80053; 80061; 81003; 82043; 82306; 82570; 83036; 84443; 85025

== ENCOUNTER 2025-01-07 10:29 | Outpatient (AMB) | payer MEDICARE, SELFPAY ==
[2025-01-07 10:35] VITALS: BP 110/64; PULSE 72; O2SAT 95; BMI 28.6
--- NOTE | 2025-01-07 10:35 | A.OFFPC_ITS ---
Vital Signs 01/07/25 10:35 Height 5 ft 10 in Weight 199 lb 8 oz BMI 28.6 BP 110/64 Blood Pressure Location Lt brachial Position Sitting Pulse 72 Pulse Source Pulse Oximeter Pulse Oximetry (%) 95 Oxygen Delivery Method Room Air Intake Visit Reasons: Annual exam - see comments Process Improvement Specialist Required: No Accompanied by: Self / Same As Patient Allergies Penicillins (PCN) Allergy (Intermediate, Verified 01/07/25 11:39) RASH Sulfa (Sulfonamide Antibiotics) (SULFA (SULFONAMIDE ANTIBIOTICS)) Allergy (Intermediate, Verified 01/07/25 11:39) RASH ragweed and dust Allergy (Intermediate, Uncoded 01/07/25 11:39) Sneezing Medication List - Last Reconciled 01/07/25 by Craig Vega MD albuterol sulfate 90 mcg/actuation (Proair Digihaler) 2 inhalations inhalation Q4-6H PRN blood sugar diagnostic (OneTouch Verio test strips) 1 strip miscellaneous DAILY cholecalciferol (vitamin D3) (Vitamin D3) 25 mcg PO DAILY clotrimazole 1% 1 appl topical BID 4 weeks ezetimibe 10 mg PO DAILY 90 days meloxicam 7.5 mg PO DAILY PRN 30 days metformin 500 mg PO DAILY 90 days omeprazole 20 mg PO QAM pravastatin 40 mg PO DAILY 90 days Tobacco use date assessed: 01/07/25 Fall risk assessment: No Falls in past year Last assessed Fall Risk: 01/07/25 Dental Screening Dental Screen Date: 01/07/25 Did you have a dental visit in the last 12 months?: Yes Did you have a dental problem in the last 6 months where you did not have access to dental care?: No Was dental information given to patient?: Patient has dentist HPI Annual exam - see comments HPI Details Patient comes in today for his annual physical examination States that he feels okay He denies any headaches or dizziness Denies any chest pains, no SOB No nausea/vomiting, no abdominal pain No change in bowel habits noted He denies any acute urinary symptoms Needs his Pravastatin Rx refilled He had his follow up labs done a few days ago - to discuss his results He has his screening colonoscopy last done with Dr. Rankin in 2020 and was recommended at the time to get his repeat colonoscopy done in 5 years (2025) [facility] Medical History Arthritis Overweight (BMI 25.0-29.9) GONZALEZ (nonalcoholic steatohepatitis) GERD without esophagitis COPD (chronic obstructive pulmonary disease) Pure hypercholesterolemia Type 2 diabetes mellitus without complication, without long-term current use of insulin Surgical History H/O colonoscopy (~01/09/21) Family History Father Lung cancer Smoker Mother Congestive heart failure Social History Housing: House Are you a primary healthcare receptionist to a significant other at home: No Do you presently have visiting nurse or other home services: No Alcohol intake: former Patient Tobacco Use Status: Former Tobacco user Tobacco use type: Cigarette e-Cigarette/Vaping Use: Never Used Second Hand Smoke Exposure: Yes service: No Current occupational status: retired Cognitive needs: No Hearing needs: No Vision needs: No Questionnaire PHQ-9 Over the last 2 weeks, how often have you been bothered by any of the following problems? 1. Little interest or pleasure in doing things: not at all 2. Feeling down, depressed, or hopeless: not at all 3. Trouble falling or staying asleep, or sleeping too much: not at all 4. Feeling tired or having little energy: not at all 5. Poor appetite or overeating: not at all 6. Feeling bad about yourself - or that you are a failure or have let yourself or your family down: not at all 7. Trouble concentrating on things, such as reading the newspaper or watching television: not at all 8. Moving or speaking so slowly that other people could have noticed. Or the opposite - being so fidgety or restless that you have been moving around a lot more than usual: not at all 9. Thoughts that you would be better off or of hurting yourself in some way: not at all Total score: 0 Depression Screening Interpretation: Negative Depression Screening Done: Yes 67717 - PHQ-9 Billing: Yes Source: Developed by Drs. Ricardo L. LeslieLucinda cheatham, Kareem Timmons and colleagues, with an educational luz maria from [employer]. Thrive Questionnaire Date Thrive assessed: 01/07/25 I am a: Patient What is your living situation today?: I have a steady place to live Within the past 12 months, did the food you bought not last and you didn't have the money to get more?: Never true Within the past 12 months, did you worry whether your food would run out before you got money to buy more?: Never true Do you have trouble paying for medicines?: No Do you have trouble getting transportation to medical appointments?: No Do you have trouble paying your heating and electricity bill?: No Do you have trouble taking care of your child, family member or friend?: No Do you have trouble with day-to-day activities such as bathing, preparing meals, shopping, managing finances, etc.?: No Are you currently unemployed and looking for a job?: No Are you interested in more education?: No Please select the resources that you would like help with: None Currently or been in a relationship where the following occur: No concerns reported THRIVE Score: 0 AUDIT C Alcohol Use Questionnaire (AUDIT-C) 1. How often do you have a drink containing alcohol?: 2-4 times a month 2. How many drinks containing alcohol do you have on a typical day when you are drinking?: 1 or 2 3. How often do you have six or more drinks on one occasion?: Never Total Score: 2 Score Reviewed/Action Taken: Yes JOHN-7 AMB Questionnaire JOHN-7 Date JOHN - 7 assessed: 01/07/25 Feeling nervous, anxious, or on edge: 0 = Not at all Not being able to stop or control worryin = Not at all Worrying too much about different things: 0 = Not at all Trouble relaxin = Not at all Being so restless that it is hard to sit still: 0 = Not at all Becoming easily annoyed or irritable: 0 = Not at all Feeling afraid as if something awful might happen: 0 = Not at all Total JOHN-7 score (0-4 normal; 5-9 mild; 10-14 moderate; 15-21 severe): 0 Source: Developed by Lucinda Osman Kurt Kroenke and colleagues, with an educational luz maria from [employer]. Review of Systems Const Denies chills, Denies fatigue, Denies fever(s), Denies headache(s), Denies malaise and Denies weakness Eyes Denies blurry vision, Denies change in vision, Denies irritation and Denies itchy eyes ENT Denies dysphagia, Denies dizziness, Denies otalgia, Denies headache(s), Denies nasal congestion, Denies neck pain, Denies odynophagia and Denies sore throat Card Denies rapid heart rate, Denies irregular heart rhythm, Denies palpitations and Denies dyspnea Resp Denies chest congestion, Denies cough, Denies dyspnea and Denies wheezing GI Denies abdominal pain, Denies bloating, Denies constipation, Denies dysphagia, Denies heartburn, Denies diarrhea, Denies nausea, Denies odynophagia and Denies vomiting Denies hematuria, Denies difficulty urinating, Denies dysuria, Denies urinary frequency and Denies urinary urgency Musc Denies back pain, Denies arthralgias, Denies joint swelling, Denies muscle weakness and Denies neck pain Skin/Breast Denies change in pigmentation, Denies lesions, Denies rash and Denies unusual bruising Neuro Denies dizziness, Denies headache(s), Denies paresthesias and Denies weakness Endo Denies fatigue and Denies palpitations Aller/Immun Denies itchy eyes and Denies wheezing Physical exam (Primary Care) Vital Signs: Last Vital Signs Pulse 72 01/07/25 10:35 BP 110/64 01/07/25 10:35 Pulse Ox 95 01/07/25 10:35 Oxygen Delivery Method Room Air 01/07/25 10:35 BMI result Body Mass Index 28.6 Tobacco/Smoking Status: Tobacco use Status Tobacco use date assessed 01/07/25 01/07/25 10:43 Patient Tobacco Use Status Former Tobacco user 01/07/25 10:37 Tobacco use type Cigarette 01/07/25 10:37 e-Cigarette/Vaping Use Never Used 01/07/25 10:37 PHQ-9: PHQ-9 Score PHQ-9: Total score 0 01/07/25 10:43 Depression Screening Interpretation: Negative Thrive Assessment: Date of Thrive Assessment Date Thrive assessed 01/07/25 01/07/25 10:43 Currently or been in a relationship where the following occur: No concerns reported Const General: no acute distress, alert and awake Orientation/consciousness: patient oriented x3 HENMT Head: Yes normocephalic and Yes atraumatic Ears: external ears normal, TM's normal bilaterally and EAC's normal General nose exam: No nasal discharge present Face and sinus: Yes normal facial exam and Yes sinuses nontender Teeth and gingiva: dentition normal Throat: Yes posterior oropharynx normal and Yes tonsils normal (no TP congestion) Eyes Eyelids: Yes eyelids normal Conjunctivae: conjunctivae normal Pupils: Equal, round and reactive pupils present EOM: EOMs intact bilaterally Neck Neck: Yes no lymphadenopathy and Yes supple Thyroid: Thyroid normal Resp Auscultation: clear to auscultation bilaterally, no rales and no wheezes Cardio Rate: regular rate Rhythm: regular rhythm Heart sounds: no murmurs GI Palpation (GI): Soft to palpation, nontender and No hepatosplenomegaly present Auscultation: normal bowel sounds General: Yes no CVA tenderness Back/Spine/Pelvis Back: no CVA tenderness Thoracic/Lumbar Spine: thoracic and lumbar spine normal to inspection Skin Lesions: no lesions Rashes: no rashes Neuro General: patient oriented x3, moves all extremities, no focal motor deficits and CN's II-XI intact bilaterally Cranial nerves: Yes Equal, round and reactive pupils present Cognition (Neuro): normal cognition Gait exam (Neuro): Normal gait present Extrem General: Yes no clubbing, cyanosis or edema Results Reviewed Results Reviewed: Laboratory Tests 01/03/25 01/03/25 06:25 06:28 WBC 6.6 Hgb 15.3 Hct 45.1 Plt Count 180 D Sodium 140 Potassium 3.9 Creatinine 0.93 Estimated GFR > 60 Fasting Glucose 101 H Hemoglobin A1c % 5.9 Calcium 9.7 D AST 39 H ALT 38 Triglycerides 155 H Cholesterol 154 LDL Cholesterol, Calc 84 HDL Cholesterol 39 L 25-OH Vitamin D Total 43.2 TSH 2.58 Ur Specific [place] 1.010 Urine Protein Negative Urine Glucose (UA) Negative Urine Blood Negative Urine Nitrite Negative Ur Leukocyte Esterase Negative Coding Level of Care Code Est Pt Prev Care >65y(67918) Diagnoses Annual physical exam Z00.00 Pure hypercholesterolemia E78.00 Type 2 diabetes mellitus without complication, without long-term current use of insulin E11.9 Chronic obstructive pulmonary disease, unspecified COPD type J44.9 COPD type: unspecified COPD GERD without esophagitis K21.9 GONZALEZ (nonalcoholic steatohepatitis) K75.81 Arthritis of finger of both hands M19.041; M19.042 Overweight (BMI 25.0-29.9) E66.3 Additional Codes PHQ-9 - 01887 - PHQ-9 Billing: Yes ([id number]) Assessment & Plan Assessment & Plan (1) Annual physical exam: Code(s): Z00.00 - Encounter for general adult medical examination without abnormal findings Category: Medical Plan: Results of his labs done a few days ago reviewed and discussed with patient He has his screening colonoscopy last done with Dr. Rankin in 2020 and was recommended at the time to get his repeat colonoscopy done in 5 years (2025) (2) Pure hypercholesterolemia: Code(s): E78.00 - Pure hypercholesterolemia, unspecified Category: Medical Plan: Have advised patient that his fasting lipids remain reasonably controlled although his serum triglyceride level went up, likely in relation to his recent weiht gain Reinforced low cholesterol diet Continue Pravastatin 40 mg QD (Rx refilled) and Ezetimibe 10 mg QD Will recheck his labs and fasting lipids in 4 months for follow-up (3) Type 2 diabetes mellitus without complication, without long-term current use of insulin: Comment: taking metformin QAM=glucose usually 82-103 Code(s): E11.9 - Type 2 diabetes mellitus without complications Category: Medical Plan: His HgbA1c remains unchanged at 5.9% on his labs done a few days ago (was previously also at 5.9% a few months ago) - goal is < 7.0% Reinforced diabetic diet Continue Metformin 500 mg QD (4) COPD (chronic obstructive pulmonary disease): Comment: mild per patient-does not use inhalers or oxygen Code(s): J44.9 - Chronic obstructive pulmonary disease, unspecified Category: Medical Qualifiers: COPD type: unspecified COPD Qualified Code(s): J44.9 - Chronic obstructive pulmonary disease, unspecified Plan: Controlled Continue Ventolin HFA 2 puffs 4 times a day only as needed - states that he has not had to use his inhaler lately (5) GERD without esophagitis: Code(s): K21.9 - Gastro-esophageal reflux disease without esophagitis Category: Medical Plan: Dietary restrictions reinforced Continue Omeprazole 20 mg QD - patient reports that his GI symptoms have improved a lot with his Rx (6) GONZALEZ (nonalcoholic steatohepatitis): Code(s): K75.81 - Nonalcoholic steatohepatitis (GONZALEZ) Category: Medical Plan: Have advised patient that his serum AST went up slightly but his ALT remains normal on his recent labs and this is likely again related to his weight as he has gained almost 10 pounds since his last visit - his LFTs were previously normal a few months ago Reinforced again avoidance of alcohol and Acetaminophen-containing medications Will continue to monitor his LFTs regularly (7) Arthritis of finger of both hands: Code(s): M19.041 - Primary osteoarthritis, right hand; M19.042 - Primary osteoarthritis, left hand Category: Medical Plan: Xrays of both hands done last year revealed (+) some erosive changes in the DIP joints suggestive of psoriatic arthritis Patient denies any skin lesions or rash He was referred previously to rheumatology for further evaluation and management but it appears that he was never scheduled or seen States that his joint pains have improved a lot with Meloxicam and he has not needed to take this lately - he takes it only when needed As he has not had any significant issues with joint pains recently, he does not wish to see rheumatology at this time (8) Overweight (BMI 25.0-29.9): Code(s): E66.3 - Overweight Category: Medical Plan: Reinforced diet/exercise as tolerated/lose weight - have cautioned patient that he has gained almost 10 pounds since his last visit Plan Follow up in 4 months Orders: Orders Hemoglobin A1c 4 Months E11.9 - Type 2 diabetes mellitus without complications Complete Blood Count Auto Diff 4 Months D64.9 - Anemia, unspecified Prostate Specific Antigen 4 Months N40.0 - Benign prostatic hyperplasia without lower urinary tract symptoms, Z00.00 - Encounter for general adult medical examination without abnormal findings Comprehensive [place]. Panel Fast 4 Months E78.00 - Pure hypercholesterolemia, unspecified Lipid Panel 4 Months E78.00 - Pure hypercholesterolemia, unspecified UA CC w/rflx Micro + Cult 4 Months R30.0 - Dysuria Vitamin D 25-OH Total 4 Months E55.9 - Vitamin D deficiency, unspecified TSH reflex Free T4 4 Months E78.00 - Pure hypercholesterolemia, unspecified Medications: Refilled pravastatin 40 mg PO DAILY 90 tabs 3RF 90 days
--- OUTSIDE RECORDS SUMMARY | 2025-01-07 11:11 | XMS_ITS | Patient Health Record ---
Author Organization [facility] Address [address] [place] [id number] Care Team Providers Care Fermenter Champagne Name Role Phone Ricardo Gonsalves [phone] Reason For Referral No Information Plan Of Treatment No Information
== END 2025-01-07 11:50 | disposition home or self-care (01) ==
LOC: HO.HMCH 10:29
PROVIDERS: PCP Internal Medicine; Visit Provider Internal Medicine
DX: Z00.00 Encounter for general adult medical examination without abnormal findings (principal); E78.00 Pure hypercholesterolemia, unspecified; E11.9 Type 2 diabetes mellitus without complications; J44.9 Chronic obstructive pulmonary disease, unspecified; K21.9 Gastro-esophageal reflux disease without esophagitis; K75.81 Nonalcoholic steatohepatitis (NASH); M19.041 Primary osteoarthritis, right hand; M19.042 Primary osteoarthritis, left hand; E66.3 Overweight

== ENCOUNTER → 2025-01-07 10:29 | Outpatient (BNVA) | payer MEDICARE, SELFPAY | PROVIDERS: PCP Internal Medicine; Visit Provider Internal Medicine | DX: Z00.00 Encounter for general adult medical examination without abnormal findings (principal); Z13.31 Encounter for screening for depression; E78.00 Pure hypercholesterolemia, unspecified; J44.9 Chronic obstructive pulmonary disease, unspecified; K21.9 Gastro-esophageal reflux disease without esophagitis; K75.81 Nonalcoholic steatohepatitis (NASH); M19.041 Primary osteoarthritis, right hand; M19.042 Primary osteoarthritis, left hand; E66.3 Overweight; E11.9 Type 2 diabetes mellitus without complications | CPT/HCPCS: 96127; 99397 ==